=== PATIENT | female | born 1975 | race Caucasian/White ===

== ENCOUNTER 2020-11-27 08:23 | Emergency (ER) | payer BC, SELFPAY ==
--- NOTE | 2020-11-27 09:09 | PC.NURSE ---
pt is in her car with a 5 day hx of chest pain. pt was informed immediatley that our provider is not here as yet and that we recommend that she go directly to the ED
== END 2020-11-27 08:30 | disposition left against medical advice (07) ==
PROVIDERS: Emergency Provider Nurse Practitioner Family; PCP Family Medicine
DX: Z53.21 Procedure and treatment not carried out due to patient leaving prior to being seen by health care provider (principal)
CPT/HCPCS: 99199

== ENCOUNTER 2020-11-27 09:21 | Emergency (ER) | payer BC, SELFPAY ==
--- NOTE | ~2020-11-27 | XR_ITS ---
EXAMINATION: XR chest 2V DATE: 11/27/2020 10:13 INDICATION: Sharp left-sided chest pain TECHNIQUE: PA and lateral views of the chest were obtained. COMPARISON: None FINDINGS: The lungs are clear with no focal airspace opacities, pulmonary edema, pleural effusion or pneumothor ax. The cardiomediastinal silhouette is normal. Post cystectomy clips in the right upper quadrant. Mi ld lower thoracic levocurvature. IMPRESSION: 1. No acute cardiopulmonary disease. Reviewed, dictated and finalized at location A.
[2020-11-27 09:27] VITALS: BP 146/79; PULSE 70; RESP 16; TEMP 36.6; O2SAT 95
[2020-11-27 09:45] LABS: Basophils Absolute Auto 0.1 K/mm3 (0.0-0.1); Eosinophils Absolute Auto 0.3 K/mm3 (0-0.3); Eosinophils Percent Auto 4.5 % (0-4.4); Hematocrit 43.2 % (37.0-47.0); Hemoglobin 14.5 g/dL (12.0-15.0); Immature Granulocyte Absolute 0.01 K/mm3 (0.00-0.031); Immature Granulocyte Percent A 0.1 % (0-0.5); Lymphocytes Absolute Auto 2.29 K/mm3 (0.9-3.2); Lymphocytes Percent Auto 32.9 % (18.3-44.2); Mean Corpuscular HGB Conc 33.6 g/dl (32-36); Mean Corpuscular Hemoglobin 29.5 pg (26-34); Mean Platelet Volume 11.5 fl (7.4-10.4); Monocytes Absolute Auto 0.5 K/mm3 (0.1-0.6); Monocytes Percent Auto 6.8 % (2.6-8.5); Neutrophils Absolute Auto 3.8 K/mm3 (1.3-6.7); Neutrophils Percent Auto 54.7 % (45.5-73.1); Platelet Count Result 162 k/mm3 (150-375); Red Blood Count 4.91 M/mm3 (4.2-5.4); Red Cell Distribution Width 13.7 % (11.5-14.5)
[2020-11-27 09:54] LABS: Alanine Aminotransferase 16 U/L (4-35); Albumin Level 4.3 g/dL (3.5-5.1); Alkaline Phosphatase 70 U/L (38-126); Anion Gap 5 mmol/L (8-16); Aspartate Amino Transferase 19 U/L (14-36); Bilirubin,Total 0.3 mg/dL (0.2-1.3); Blood Urea Nitrogen 11 mg/dL (7-17); Calcium 9.1 mg/dL (8.4-10.2); Carbon Dioxide 26 mmol/L (22-30); Chloride 108 mmol/L (98-107); Estimated CRCL calculation 77 ml/min; Estimated Glomerular Filt Rate > 60; Glucose 101 mg/dL (65-105); Lipase 108 U/L (23-300); Potassium 3.7 mmol/L (3.4-5.0); Sodium 139 mmol/L (137-145)
[2020-11-27 10:04] LABS: Add Urine Microscopic? NO; Appearance Urine Clear (Clear); Bilirubin Urine Negative (Negative); Blood Urine Negative (Negative); Color Urine Straw (Yellow); Glucose Urine UA Negative (Negative); Ketones Urine Negative (Negative); Leukocyte Esterase Ur Negative LEU/UL (Negative); Nitrate Urine Negative (Negative); Protein Urine Negative (Negative); Specific Grav Ur 1.008 (1.001-1.035); Urobilinogen Urine Negative mg/dL (<2.0)
[2020-11-27] MEDS: KETOROLAC 30 MG/ML VIAL (*BKC) IV PUSH (10:09)
[2020-11-27 10:26] LABS: D Dimer 0.27 ug/mL (<0.48)
--- NOTE | 2020-11-27 11:30 | ED.GENADULT ---
HPI - General Adult General Chief complaint: Abdominal Pain Stated complaint: left upper abd/chest pain Time Seen by Provider: 11/27/20 09:32 History of Present Illness HPI narrative: Patient is a 45-year-old female who presents ER with left anterior chest wall pain inferior to the breast. Worse with movement and deep breath. No runny nose/sore throat/productive cough. No hemoptysis. No known trauma. No dyspnea or exertional dyspnea. Patient has no lower extremity swelling. No recent long distance travel or surgeries. No known cancer history. Patient does smoke. She is not on control. Patient was referred here from urgent care. No abdominal pain/nausea/vomiting/diarrhea. No urinary symptoms. Has tried [id number] pain medication without significant improvement. Related Data Home Medications Medication Instructions Recorded Confirmed No Home Medications 11/27/20 11/27/20 Allergies Allergy/AdvReac Type Severity Reaction Status Date / Time No Known Allergies Allergy Verified 11/27/20 09:30 Review of Systems Review of Systems: All systems reviewed & are unremarkable except as noted in HPI and below Constitutional: Constitutional: Denies chills, Denies fever(s) and Denies weakness ENT: Denies nasal congestion and Denies sore throat Cardiovascular: Cardiovascular: Reports chest pain, Denies rapid heart rate and Denies radiating jaw, neck or arm pain Respiratory: Respiratory: Denies chest congestion, Denies dyspnea and Denies wheezing Gastrointestinal: Gastrointestinal: Denies abdominal pain, Denies nausea and Denies vomiting Musculoskeletal: Musculoskeletal: Denies back pain and Denies muscle cramps Neurologic: Denies focal weakness, Denies numbness and Denies weakness PMFSH Past Medical History Medical History (Updated 11/27/20 @ 13:06 by Adolfo Car MD) Healthy female adult Surgical History Surgical History (Updated 11/27/20 @ 11:32 by Adolfo Car MD) History of cholecystectomy History of knee surgery History of tubal ligation Social History Social History (Updated 11/27/20 @ 11:32 by Adolfo Car MD) Tobacco type: cigarettes Exam Narrative: Exam Narrative: GENERAL: Well-appearing, well-nourished, and in no acute distress. HEAD: Normocephalic, atraumatic. ENT: Mucous membranes moist. CHEST: Clear to auscultation. No respiratory distress. Significant tenderness palpation to anterior chest wall inferior to the breast. HEART: Regular rate and rhythm. Normal peripheral pulses. ABDOMEN: Soft, nontender, nondistended. EXTREMITIES: Normal range of motion. No edema. SKIN: Warm, dry, no rash. NEURO: Alert and oriented x3. Course Course Emergency Course: Pain improving with Toradol. Informed results. Discharge home. Vital Signs Vital signs: Vital Signs Temperature 97.9 F 11/27/20 09:27 Pulse Rate 70 11/27/20 09:27 Respiratory Rate 16 11/27/20 09:27 Blood Pressure 146/79 H 11/27/20 09:27 Pulse Oximetry 95 11/27/20 09:27 Temperature 97.9 F 11/27/20 09:27 Pulse Rate 76 11/27/20 12:28 Respiratory Rate 20 11/27/20 12:28 Blood Pressure 132/78 11/27/20 12:28 Pulse Oximetry 99 11/27/20 12:28 Medical Decision Making Vital Signs Vital Signs: Vital Signs Temperature 97.9 F 11/27/20 09:27 Pulse Rate 70 11/27/20 09:27 Respiratory Rate 16 11/27/20 09:27 Blood Pressure 146/79 H 11/27/20 09:27 Pulse Oximetry 95 11/27/20 09:27 Temperature 97.9 F 11/27/20 09:27 Pulse Rate 76 11/27/20 12:28 Respiratory Rate 20 11/27/20 12:28 Blood Pressure 132/78 11/27/20 12:28 Pulse Oximetry 99 11/27/20 12:28 Lab Data Result diagrams: 11/27/20 09:34 11/27/20 09:34 Labs: Lab Results 11/27/20 11/27/20 11/27/20 Range/Units 09:34 09:34 09:34 WBC 7.0 (4.5-10.0) K/mm3 RBC 4.91 (4.2-5.4) M/mm3 Hgb 14.5 (12.0-15.0) g/dL Hct 43.2 (37.0-47.0) % M
[2020-11-27 12:28] VITALS: BP 132/78; PULSE 76; RESP 20; O2SAT 99
[2020-11-27 13:33] VITALS: BP 148/84; PULSE 76; RESP 20; O2SAT 99
== END 2020-11-27 13:36 | disposition home or self-care (01) ==
PROVIDERS: Emergency Provider Emergency Medicine
DX: R07.89 Other chest pain (principal); F17.210 Nicotine dependence, cigarettes, uncomplicated
CPT/HCPCS: 36415; 71046; 80053; 81003; 83690; 85025; 85380; 96374; 99284; J1885

== ENCOUNTER 2021-12-08 10:46 | Outpatient (CLI) | payer BC, SELFPAY ==
--- NOTE | ~2021-12-08 | US_ITS ---
EXAMINATION: US pelvic complete w TV EXAM DATE: 12/08/2021 11:24 INDICATION: R10.2 - Pelvic and perineal pain. TECHNIQUE: Pelvic transabdominal and transvaginal sonogram was performed. There are multiple graysca le and Doppler images available for interpretation. There is no prior study for comparison. FINDINGS: Uterus measures 7.0 x 4.0 x 3.3 cm, with scattered anechoic regions, consistent with nabot hian cysts in the cervix. Similar-appearing cystic region within the endometrium, could be loculated fluid pocket which is more fundal in position. No gestation sac or pole within this. There is a posterior myometrial fibroid. Right adnexa: The ovary is not identified. There is no adnexal mass. Left adnexa: The ovary measures 2.1 x 1.8 x 1.7 cm and is morphologically normal. Ovarian vascular fl ow confirmed. IMPRESSION: 1. Nabothian cyst. 2. Endometrial fluid pocket most likely small region of loculated endometrial fluid. Consider 6 week follow-up exam. 3. Small fibroid. 4. Unremarkable left ovary. Reviewed, dictated and finalized at location B.
== END 2021-12-08 10:47 | disposition home or self-care (01) ==
LOC: ANHIMG 10:50
PROVIDERS: Visit Provider Obstetrics & Gynecology
DX: R10.2 Pelvic and perineal pain (principal); N88.8 Other specified noninflammatory disorders of cervix uteri; D25.9 Leiomyoma of uterus, unspecified
CPT/HCPCS: 76830; 76856

== ENCOUNTER 2022-02-16 11:12 | Outpatient (CLI) | payer BC, SELFPAY | END 2022-02-16 11:13 | disposition home or self-care (01) | PROVIDERS: Visit Provider Obstetrics & Gynecology | DX: D25.9 Leiomyoma of uterus, unspecified (principal); Z01.818 Encounter for other preprocedural examination | CPT/HCPCS: 36415; 86850; 86900; 86901 ==

== ENCOUNTER 2022-02-20 01:12 | Day surgery (SDC) | payer BC, SELFPAY ==
[2022-02-13 09:32] VITALS: BMI 23.1
--- NOTE | 2022-02-13 09:44 | PC.NURSE ---
Report to the Outpatient Waiting Room, entrance under the green pavilion located off [facility], at time 6:00 on date 02/20/22. OR Time: 7:30. - You and your visitor will be asked a series of questions to screen for COVID 19 for your protection. - Only one visitor is allowed at this time. - The patient visitor is requested to leave or wait in car when not with patient. - A mask is required within the hospital. Patients may have clear liquids (water, carbonated beverages, clear teas, apple juice) until 3 hours prior to surgery (4:30) with a maximum of 20 ounces. - No food from midnight until time of surgery Take the following medications with a SIP of water the morning of surgery: NONE Medications to discontinue per physician: N/A Date to take last dose: N/A Please no make-up, nail faroese, hairspray, perfume, deodorant, or body powder the day of surgery. No jewelry (including any body piercings) or valuables the day of surgery, leave them at home. Please take a shower or bath the night before, or the morning of, surgery with an antibacterial soap. Wear comfortable, loose fitting clothing. - Jewelry must be removed prior to entering the operating room. Rings and piercings that are not removed may be cut off. - The hospital will not accept responsibility for valuables. - Please leave all valuables, including medications, at home the day of surgery. If you are going home after surgery, a licensed experienced truck driver must drive you home. - NO public transportation without another adult. - We recommend that an adult stay with you for 24 hours following discharge. - We also recommend that you do not drive, make important decision, drink alcoholic beverages, or take any drugs that were not prescribed by your health care provider for at least 24 hours after your discharge time. Follow any additional instructions given to you from your surgeon. If you or anyone in your household have experienced Covid symptoms in the past week, please notify your surgeon or the nurse liaison at the phone number below for possible testing. Telephone instructions given to PT - PORTILLO MAO and asked if any additional questions and then verbalized understanding. Patient advised to call surgeon office or pre surgery nurse liaison [phone] if any additional questions.
[2022-02-20] VITALS (12 sets, daily range): BP systolic 114–155; BP diastolic 61–91; PULSE 50–72; RESP 11–18; TEMP 35.9–36.9; O2SAT 95–100
[2022-02-20] MEDS: ACETAMINOPHEN 500 MG TABLET 1000 MG PO (06:44)
[2022-02-20] MEDS: KETOROLAC 15 MG/ML VIAL (*BKC) IV PUSH (06:44)
[2022-02-20] MEDS: LACTATED RINGERS 1,000 ML 30 ML IV CONT ×2 (06:44→09:00)
--- NOTE | 2022-02-20 07:04 | P.PNAN_ITS ---
Anes - Initial Pre Proc Eval Procedure: Operation Date: 02/20/22 07:30 Proposed Procedures p Robotic Assisted Laparoscopic Hysterectomy with Bilateral Salpingectomy, - Mary Fabian MD s Cystoscopy - Mary Fabian MD Date/Time: 02/20/22 07:04 Surgeon: Mary Fabian MD Pre Op Diagnosis: uterine fibroids Patient Data Age: 46 Gender: F Height: 1.63 m Weight: 60.3 kg Last Vital Signs Temp 36.2 C L 02/20/22 06:28 Pulse 72 02/20/22 06:28 Resp 18 02/20/22 06:28 BP 124/79 02/20/22 06:28 Pulse Ox 100 02/20/22 06:28 O2 Del Method Room Air 02/20/22 06:28 Allergies Allergy/AdvReac Type Severity Reaction Status Date / Time No Known Allergies Allergy Verified 02/20/22 06:26 Home Medications Medication Instructions Recorded Confirmed Type No Home Medications 11/27/20 02/20/22 History Patient hx anesthesia problems: none Family hx anesthesia problems: none Results Review: All pre-operative results and documents have been reviewed as part of the pre- operative evaluation. [facility] Past Medical History Medical History (Updated 02/20/22 @ 07:05 by Jaison Kramer MD) Healthy female adult Leiomyoma Surgical History Surgical History History of breast biopsy 08/22/2021- BILATERAL BX DONE XS 3 - BENGINS FINDINGS PER PT History of cholecystectomy History of knee surgery History of tubal ligation Family History Family History Other Acute myocardial infarction Heart disease Social History Social History Smoking packs per day: 0.5 Smoking cigarettes per day: 10.0 Years smoked: 15 Smoking pack-years: 7.50 Smoking status: Current every day smoker Tobacco type: cigarettes Alcohol intake: current Alcohol use details: 6/MONTH Substance use: never Substance use type: does not use Living arrangements: with family 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[employer] Gender identity (if verbalized by the patient): Female Sexual Orientation (if Verbalized by the Patient): Straight or Heterosexual Spiritual care concerns: No Anes - Eval Final PreProcedure Day of Procedure 02/20/22 07:04 Patient weight: normal Heart: regular rate and rhythm Lungs: clear to auscultation and normal air movement Airway: Mallampati scale class II Neurological: alert and oriented Last oral intake: >/= 8 hours ASA classification: II Emergent: no Anesthetic plan: proceed Anesthesia type and monitoring: general ETT Results Review: All pre-operative results and documents have been reviewed as part of the pre- operative evaluation. Informed Consent: The patient's anesthetic plan and its attendant risks and benefits were discussed with the patient/family/POA. Questions were solicited and answers provided to the satisfaction of the patient/family/POA.
--- NOTE | 2022-02-20 07:10 | PM.IMHP ---
H&P: HPI History of Present Illness Date/Time: 02/20/22 07:00 Chief Complaint: scheduled surgery Narrative: Anahi is a 46yo P2010, who presents for scheduled surgery. She has a h/o BTL and endometrial ablation; does not have cycles. She has been having sharp pelvic pains the last couple months; US and CT scan are normal except for endometrial cysts (hematometria/post ablative syndrome). She reports intercourse is now painful. She is tired of the pain; using a heating pad and ibuprofen constantly. She desires to proceed with hysterectomy. No bleeding, discharge, bowel/bladder issues. Normal pap smear 12/2021. Review of Systems Review of Systems: All systems reviewed & are unremarkable except as noted in HPI and below (HPI) [facility] Past Medical History Medical History (Updated 02/20/22 @ 07:05 by Jaison Kramer MD) Healthy female adult Leiomyoma Surgical History Surgical History History of breast biopsy 08/22/2021- BILATERAL BX DONE XS 3 - BENGINS FINDINGS PER PT History of cholecystectomy History of knee surgery History of tubal ligation Family History Family History Other Acute myocardial infarction Heart disease Social History Social History Smoking packs per day: 0.5 Smoking cigarettes per day: 10.0 Years smoked: 15 Smoking pack-years: 7.50 Smoking status: Current every day smoker Tobacco type: cigarettes Alcohol intake: current Alcohol use details: 6/MONTH Substance use: never Substance use type: does not use Living arrangements: with family 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[employer] Gender identity (if verbalized by the patient): Female Sexual Orientation (if Verbalized by the Patient): Straight or Heterosexual Spiritual care concerns: No Meds Home Medications and Allergies Home Medications Medication Instructions Recorded Confirmed Type No Home Medications 11/27/20 02/20/22 History Allergies Allergy/AdvReac Type Severity Reaction Status Date / Time No Known Allergies Allergy Verified 02/20/22 06:26 Exam Const: General: cooperative, healthy appearing, comfortable and no acute distress Resp: Effort & Inspection: normal respiratory effort Cardio: Rate: regular rate GI: Inspection: normal to inspection and non-distended GI Palp: Yes Soft to palpation Skin: General skin exam: normal color Neuro: General: patient oriented x3 Extrem: General: normal to inspection Psych: Appearance: grossly normal Affect: normal affect Attitude: cooperative Assessment and Plan Assessment and plan (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
--- NOTE | 2022-02-20 07:10 | WPDHPUPDATE1 ---
History and Physical Update Update Date/Time: 02/20/22 07:10 History and Physical has been reviewed, including an updated exam of the patient. There are NO changes in the patient's condition. Risks, benefits, and alternatives have been discussed and questions answered. Patient agrees to proceed with procedure.
[2022-02-20] MEDS: ceFAZolin 2 GM/D5W 50 ML 2 GM/50 ML BAG IVPB (07:24)
[2022-02-20] MEDS: LIDO 1%/EPINEPHRINE/PF 1:200,000 30 ML VIAL INFILTRATE (08:48)
--- NOTE | 2022-02-20 08:58 | W.PM.PROC2 ---
Procedure Note - Detailed Date of Procedure 02/20/22 Pre-op Diagnosis Post endometrial ablation syndrome Endometrial cyst Post-op Diagnosis Same Procedure Performed Robotic assisted total laparoscopic hysterectomy with bilateral salpingectomy and cystoscopy Surgeon Mary Fabian MD Anesthesia General Findings Normal uterus; endometrium with scar tissue from prior ablation, hard to enter cavity. Normal ovaries. Bilateral fallopian tubes with prior history of tubal ligation. Normal bladder w/o defect and bilateral ureteral efflux noted. Good hemostasis at end of case. Description of Procedure Anahi was taken to the operating room where she was placed under general anesthesia without issues. She received 2 g Ancef.? She was then prepped and draped in the usual sterile fashion? in the dorsal lithotomy position with her legs in low [place] stirrups and her arms tucked at her side.? A time-out was performed.? My attention was turned down below where a epperson catheter was placed. A bivalve speculum was placed within the vagina. The cervix was easily identified and the anterior lip of the cervix was grasped with single-tooth tenaculum.? The uterus was then sounded to 8cm.? The cervix was serially dilated to allow for the VALE uterine manipulator; which was placed w/o issue (6cm tip with 2.5cm cervical ring).? My gloves were changed and attention was then turned to the abdomen. A supraumbilical incision was made, and a 5 mm trocar was placed under direct visualization.? Once intra-abdominal placement was confirmed, the abdomen was insufflated with carbon dioxide gas.? An abdominal survey was performed and the above findings were noted.? Two additional ports were placed on the patients right side with an additional port on the left side under direct visualization without issues.The robot was then docked. The instruments were placed intra-abdominally under direct visualization.? I then un-scrubbed and went to the robotic console. I then started my hysterectomy on the right side. The ureter was easily identified transperitoneally and well out of the surgical field. The fallopian tube was elevated and the mesosalpinx was coagulated and transected.? The round ligament was clamped, coagulated, and transected. The uterine ovarian artery was then serially clamped, coagulated, and transected with good hemostasis. The broad ligament was then dissected anteriorly and posteriorly skeletonizing the uterine artery.? The bladder flap was then developed on the right side and carried around the left, anteriorly.? The uterine artery was then serially clamped and coagulated.? Once the vessel was adequately coagulated, it was then transected with good hemostasis. The same procedure was then performed on the left side without complications. ? The uterus was noted to be devascularized.? The bladder flap was verified out of the surgical field and the colpotomy was started anteriorly and continued in a clockwise fashion until the uterus was released.? The uterus was removed from the abdomen via the vagina without complications.? The vaginal cuff had small bleeders that were made hemostatic without complications.? The vaginal cuff was then reapproximated using a 0 V lock suture. The pelvis was then irrigated and suctioned free of all clots and debris.? Good hemostasis was noted.? All instruments were removed from the abdomen and the robot was undocked.? I then scrubbed back in and verified that the cuff was intact without any defects.? The Epperson catheter was then removed.? The cystoscope was placed within the urethra/ bladder, which filled without difficulty.? Bilateral ureteral efflux was noted.? The bladder was examined and no defects or abnormalities were visualized.? The bladder was drained.? The cystoscope was removed and the epperson catheter was replaced under aseptic techique..? The 4 laparoscopic incisions were reapproximated using 4-0 Monocryl and covered with Dermabond.? The laparoscopic incisions
[2022-02-20] MEDS: fentaNYL CITRATE INJ (*CRX) 100 MCG/2 ML VIAL 25 MCG IV PUSH ×3 (09:23→09:41)
--- NOTE | 2022-02-20 10:35 | ADMGEN ---
1017-This patient, Anahi Whittaker, was admitted to OB 2nd Floor Room 289-00. Patient/family oriented to hospital policies and general routines including ID bracelet, bed and alarms, visiting hours, pain management, procedures, bathroom and other care routines, personal items, smoking policy, room service/diet, and visiting hours. Information on how to activate the Rapid Response Team has been discussed. Patient/Family are encouraged to report perceived risks to care and to ask questions if they do not understand what they are told or what they should do.
[2022-02-20] MEDS: KETOROLAC 30 MG/ML VIAL (*BKC) IV PUSH ×2 (11:08→16:53)
[2022-02-20] MEDS: LACTATED RINGERS 1,000 ML 125 ML IV CONT (11:09)
[2022-02-20] MEDS: DOCUSATE SODIUM 100 MG CAPSULE PO (16:54)
[2022-02-20] MEDS: IBUPROFEN 600 MG TABLET PO (22:40)
[2022-02-21 03:30] VITALS: BP 116/69; PULSE 64; RESP 18; TEMP 36.9; O2SAT 98
[2022-02-21] MEDS: IBUPROFEN 600 MG TABLET PO (04:53)
[2022-02-21 05:00] LABS: Basophils Absolute Auto 0.1 K/mm3 (0.0-0.1); Basophils Percent Auto 0.5 % (0.2-1.2); Eosinophils Absolute Auto 0.1 K/mm3 (0-0.3); Eosinophils Percent Auto 0.7 % (0-4.4); Immature Granulocyte Absolute 0.03 K/mm3 (0.00-0.031); Immature Granulocyte Percent A 0.3 % (0-0.5); Immature Platelet Fraction Pct 15.6 % (0.9-11.2); Lymphocytes Absolute Auto 2.15 K/mm3 (0.9-3.2); Lymphocytes Percent Auto 18.5 % (18.3-44.2); Mean Corpuscular HGB Conc 33.3 g/dl (32-36); Mean Corpuscular Hemoglobin 29.5 pg (26-34); Mean Corpuscular Volume 88.5 fl (80-100); Mean Platelet Volume 12.7 fl (7.4-10.4); Monocytes Absolute Auto 0.8 K/mm3 (0.1-0.6); Monocytes Percent Auto 6.6 % (2.6-8.5); Neutrophils Absolute Auto 8.5 K/mm3 (1.3-6.7); Neutrophils Percent Auto 73.4 % (45.5-73.1); Platelet Count Result 133 k/mm3 (150-375); Red Blood Count 4.07 M/mm3 (4.2-5.4); Red Cell Distribution Width 13.9 % (11.5-14.5); White Blood Count 11.6 K/mm3 (4.5-10.0)
[2022-02-21 05:12] LABS: Anion Gap 8 mmol/L (8-16); Blood Urea Nitrogen 10 mg/dL (7-17); Calcium 8.7 mg/dL (8.4-10.2); Carbon Dioxide 23 mmol/L (22-30); Chloride 105 mmol/L (98-107); Estimated CRCL calculation 76 ml/min; Estimated Glomerular Filt Rate > 60; Glucose 118 mg/dL (65-110); Potassium 3.3 mmol/L (3.4-5.0); Sodium 136 mmol/L (137-145)
--- NOTE | 2022-02-21 07:06 | PM.GYNPNOP ---
EQUINE MANAGER - A/P Assessment and plan (1) S/P laparoscopic hysterectomy: Code(s): Z90.710 - Acquired absence of both cervix and uterus Status: Acute Postoperative Procedures: Procedures Operation Date: 02/20/22 07:30 Actual Procedure Side Surgeon p Robotic Assisted Laparoscopic Hysterectomy with Bilateral Salpingectomy, Bilateral Mary Fabian MD s Cystoscopy Not Applicable Mary Fabian MD Postoperative day: 1 Postoperative status: doing well Postoperative plan: routine post-op care and discharge Time Spent With Patient Time: Total time spent is greater than 50% in coordination of care (as documented) at patient's floor/unit and/or counseling patient: Time with patient: less than 15 minutes EQUINE MANAGER- PN:Subj Post-Op Subjective Date/time seen: 02/21/22 07:06 Interval history: POD #1 Anahi reports doing well. Her pain is controlled. She has tolerated diet. She has voided. She has ambulated w/o symptoms of anemia. She has passed gas. She is ready to go home today. Review of Systems Constitutional: Constitutional: Denies chills, Denies fever(s) and Denies headache(s) ENT: Denies dizziness and Denies headache(s) Cardiovascular: Cardiovascular: Denies chest pain, Denies palpitations and Denies dyspnea Respiratory: Respiratory: Denies cough and Denies dyspnea Gastrointestinal: Gastrointestinal: Denies nausea and Denies vomiting Genitourinary: Genitourinary: Denies abnormal vaginal bleeding Comments: normal bleeding Neurologic: Denies dizziness and Denies headache(s) Endocrine: Endocrine: Denies palpitations Exam Const: General: cooperative, comfortable and no acute distress Orientation/consciousness: patient oriented x3 Resp: Effort & Inspection: normal respiratory effort Auscultation: clear to auscultation bilaterally Cardio: Rate: regular rate GI: Inspection: non-distended and incision (4 lap incisions covered w/ dermabond) GI Palp: Yes abdominal tenderness (appropriate) and Yes Soft to palpation Auscultation: normal bowel sounds : Other: no bleeding on pad Skin: General skin exam: normal color Neuro: General: patient oriented x3 Extrem: General: normal to inspection Psych: Appearance: grossly normal Affect: normal affect Attitude: cooperative EQUINE MANAGER - PN: Obj Data Vital Signs Vital Signs: Vital Signs - 24 hr 02/20/22 09:00 02/20/22 09:16 02/20/22 09:30 Temperature 96.9 F L 96.7 F L 97 F L Pulse Rate 66 57 L 51 L Respiratory Rate 12 12 12 Blood Pressure 133/79 139/91 H 155/86 H Pulse Oximetry 100 100 98 Oxygen Delivery Simple Face Mask Simple Face Mask Room Air Oxygen Flow Rate 10 10 02/20/22 09:45 02/20/22 10:00 02/20/22 10:35 Temperature 97 F L 97 F L Pulse Rate 54 L 60 59 L Respiratory Rate 11 L 11 L 16 Blood Pressure 153/84 H 144/85 H Pulse Oximetry 95 97 97 Oxygen Delivery Room Air Room Air Room Air Oxygen Flow Rate 02/20/22 10:20 02/20/22 12:23 02/20/22 14:36 Temperature 97.1 F L 97.8 F Pulse Rate 59 L 55 L 55 L Respiratory Rate 16 18 18 Blood Pressure 114/73 127/80 Pulse Oximetry 96 100 100 Oxygen Delivery Room Air Oxygen Flow Rate 02/20/22 18:35 02/20/22 22:42 02/21/22 03:30 Temperature 98.2 F 98.5 F 98.5 F Pulse Rate 52 L 50 L 64 Respiratory Rate 18 18 18 Blood Pressure 117/79 136/61 116/69 Pulse Oximetry 98 98 98 Oxygen Delivery Oxygen Flow Rate Intake/Output Intake/Output: Intake & Output 02/18/22 02/19/22 02/20/22 02/21/22 23:59 23:59 23:59 23:59 Intake Total 2955 Output Total 880 Balance 2075 Meds/Results Medications: Active Medications Generic Name Dose Route Start Last Admin Trade Name Antonina PRN Reason Stop Dose Admin Acetaminophen 1,000 mg 02/20/22 13:00 Acetaminophen 500 Mg Tablet PO Q6H CATALINA Docusate Sodium 100 mg 02/20/22 10:09 02/20/22 16:54 Docusate Sodium 100 Mg Capsule PO 100 mg BID CATALINA Administration Lactated Ringer's 1,000 mls @ 125 m
[2022-02-21 08:00] VITALS: BP 124/84; PULSE 57; RESP 18; TEMP 36.9; O2SAT 99
--- NOTE | 2022-02-21 08:56 | WPDANESPN ---
Anes - Prog Note Post-Op Date/Time: 02/21/22 08:56 Cardiovascular status: normal Respiratory status: normal Airway patency: baseline Mental status: baseline Post-Op hydration status: normal Vital Signs: Last Vital Signs Temp 36.9 C 02/21/22 03:30 Pulse 64 02/21/22 03:30 Resp 18 02/21/22 03:30 BP 116/69 02/21/22 03:30 Pulse Ox 98 02/21/22 03:30 O2 Del Method Room Air 02/20/22 14:36 O2 Flow Rate 10 02/20/22 09:16 Pain Score (VAS): 3 I/O: Intake & Output 02/20/22 02/21/22 02/21/22 23:59 07:59 15:59 Output Total 250 Balance -250 Laboratory Tests 02/21/22 03:37 02/21/22 03:37 02/21/22 02/21/22 03:37 03:37 WBC 11.6 H RBC 4.07 L Hgb 12.0 Hct 36.0 L MCV 88.5 MCH 29.5 MCHC 33.3 RDW 13.9 Plt Count 133 L MPV 12.7 H Immature Gran % (Auto) 0.3 Neut % (Auto) 73.4 H Lymph % (Auto) 18.5 [place] % (Auto) 6.6 Eos % (Auto) 0.7 Baso % (Auto) 0.5 Lymph # (Auto) 2.15 [place] # (Auto) 0.8 H Eos # (Auto) 0.1 Baso # (Auto) 0.1 Abs Immat Gran (auto) 0.03 Absolute Neuts (auto) 8.5 H Absolute Nucleated RBC 0.0 Nucleated RBC % 0.0 % Immature Plt Fraction 15.6 H Sodium 136 L Potassium 3.3 L Chloride 105 Carbon Dioxide 23 Anion Gap 8 BUN 10 Creatinine 0.70 Estim Creat Clear Calc 76 Estimated GFR > 60 Glucose 118 H Calcium 8.7 Post-procedural complaints: none Patient Feedback: Patient satisfied with anesthetic care.
== END 2022-02-21 08:53 | disposition home or self-care (01) ==
LOC: ANHSURGERY 06:11 → ANHOB2 10:11
PROVIDERS: Visit Provider Obstetrics & Gynecology
PROC: (CPT 58571; principal; 2022-02-20 07:30)
PROC: 0TJB8ZZ Inspection of Bladder, Via Natural or Artificial Opening Endoscopic (ICD-10-PCS; CPT 52000; 2022-02-20 07:30)
DX: N99.85 Post endometrial ablation syndrome (principal); N80.0 Endometriosis of uterus; F17.210 Nicotine dependence, cigarettes, uncomplicated
CPT/HCPCS: 58571; S2900; 36415; 80048; 85025; 85055; 86850; 86900; 86901; 88307; 99199; A9270; J0690; J1100; J1170; J1885; J2250; J2405; J2704; J3010; J7030; J7120

== ENCOUNTER 2022-02-28 15:34 | Outpatient (CLI) | payer BC, SELFPAY | END 2022-02-28 15:35 | disposition home or self-care (01) | LOC: ANHLAB 15:36 | PROVIDERS: Visit Provider Obstetrics & Gynecology | DX: R30.0 Dysuria (principal) | CPT/HCPCS: 87086; 87088 ==

== ENCOUNTER 2022-03-06 14:11 | Outpatient (CLI) | payer BC, SELFPAY | END 2022-03-06 14:12 | disposition home or self-care (01) | LOC: ANHLAB 14:13 | PROVIDERS: Visit Provider Obstetrics & Gynecology | DX: R30.0 Dysuria (principal) | CPT/HCPCS: 87086 ==

== ENCOUNTER 2023-01-03 15:18 | Outpatient (CLI) | payer BC, SELFPAY ==
[2023-01-03 16:18] LABS: Appearance Urine Clear (Clear); Bilirubin Urine Negative (Negative); Blood Urine Negative (Negative); Color Urine Yellow (Yellow); Glucose Urine UA Negative (Negative); Ketones Urine Negative (Negative); Leukocyte Esterase Ur Negative LEU/UL (NEGATIVE); Nitrate Urine Negative (Negative); Protein Urine Negative (Negative); Specific Grav Ur 1.005 (1.001-1.035); Urobilinogen Urine 0.2 mg/dL (<2.0); pH Urine 6.5 (5.0-9.0)
[2023-01-03 16:21] LABS: Add Urine Microscopic? NO
== END 2023-01-03 15:19 | disposition home or self-care (01) ==
LOC: ANHLAB 15:20
PROVIDERS: Visit Provider Obstetrics & Gynecology
DX: R30.0 Dysuria (principal)
CPT/HCPCS: 81003; 87086

== ENCOUNTER 2023-03-05 11:59 | Outpatient (CLI) | payer BC, SELFPAY ==
--- NOTE | ~2023-03-05 | MMUS_ITS ---
EXAMINATION: MM diagnostic linus BI w laura, US breast LT limited HISTORY: Lateral left breast lump TECHNIQUE: ML, MLO and CC full field and spot 3-D tomosynthesis images of both breasts were performed and synthetic 2-D images were generated. CAD analysis was submitted and interpreted. High resolution upper outer quadrant and subareolar left breast ultrasound was performed. COMPARISON: 05/09/2021 bilateral diagnostic mammogram 04/26/2021 bilateral screening mammogram BREAST PARENCHYMAL COMPOSITION: The breasts are heterogeneously dense, which may obscure small masses . FINDINGS: MAMMOGRAPHIC FINDINGS: There are 3 biopsy markers in each breast; history of 3 benign needle biopsies of each breast. There is interval enlargement of a mass in the posterior upper outer left breast. There is a biopsy m arker centrally within this mass. The margins are circumscribed and measures up to approximately 16 x 20 mm. There is halo sign. The circumscribed margins and halo sign suggest benign process. There is reportedly a prior benign biopsy of this lesion. However, considering the increased in size since 04/10 at which time it measured approximately 7 x 11 mm, ultrasound examination was performed. Otherwise no suspicious new mass or architectural distortion, malignant calcification, skin thickenin g or retraction is noted. ULTRASOUND: 12:00 2 cm from nipple: Circumscribed 3.7 x 2.7 x 4.8 mm lesion without internal vascularity or poste rior shadowing, likely benign 12:00 3 cm from nipple: Similar 3.6 x 2.8 x 3.9 mm circumscribed hypoechoic lesion without internal v ascularity or posterior shadowing 2:00 7 cm from nipple: Circumscribed hypoechoic 7 x 5 x 4 mm lesion without internal vascularity or p osterior shadowing, probable biopsy marker 3:00 8 cm from nipple: Parallel circumscribed heterogeneous mixed solid and fatty lesion, measuring 1 1 x 20 x 22 mm, with evidence of a biopsy marker. There is through transmission and posterior enhance ment and no abnormal internal vascularity. The mammographic halo sign, mammographic circumscribed mar gins and Presence of fat within the lesion suggests benign process, possibly hamartoma (fibroadenolipoma); dif ferential diagnosis includes lipoma, less likely fibroadenoma. Correlation with surgical biopsy is re commended. IMPRESSION: 1. Probably benign lesion in posterior upper outer left breast at 3:00 8 cm from nipple 2. Consider 6 month diagnostic mammogram and ultrasound follow-up considering the increased size sinc e 04/26/2021 BI-RADS category 3, probably benign findings. Reviewed, dictated and finalized at location A. IMPRESSION: 1. Probably benign lesion in posterior upper outer left breast at 3:00 8 cm fro m nipple 2. Consider 6 month diagnostic mammogram and ultrasound follow-up considering t he increased size since 04/26/2021 BI-RADS category 3, probably benign findings.
== END 2023-03-05 12:00 | disposition home or self-care (01) ==
LOC: ANHIMG 12:01
PROVIDERS: Visit Provider Obstetrics & Gynecology
DX: N63.21 Unspecified lump in the left breast, upper outer quadrant (principal); R92.8 Other abnormal and inconclusive findings on diagnostic imaging of breast
CPT/HCPCS: 76642; 77062; 77066; G0279

== ENCOUNTER 2023-08-15 10:37 | Outpatient (CLI) | payer BC, SELFPAY ==
--- NOTE | ~2023-08-15 | MMUS_ITS ---
EXAMINATION: MM diagnostic linus LT w laura, US breast LT limited HISTORY: Left breast mass TECHNIQUE: Additional 3-D tomosynthesis images of the left breast were performed and synthetic 2-D im ages were generated. CAD analysis was submitted and interpreted. High resolution limited left breast ultrasound was performed. COMPARISON: 03/05/2023, 05/09/2021, 04/26/2021 FINDINGS: MAMMOGRAPHIC FINDINGS: There are three stable left breast masses with biopsy change. There is also a stable asymmetry in the anterior third of the breast on the craniocaudal view in line with the nipple axis. ULTRASOUND: There is a stable 2.6 x 1.7 cm oval, circumscribed, parallel, hypoechoic mass with posterior acoustic enhancement and internal vascularity at the 3:00 location, 8 cm from the nipple with associated biop sy change. There is a 4 mm cyst at the 12:00 location, 2 cm from the nipple. IMPRESSION: 1. Stable left breast masses and left breast asymmetry without mammographic or sonographic evidence o f malignancy. 2. Recommend routine screening mammography in one year. BI-RADS Category 2: Benign finding(s). Reviewed, dictated and finalized at location A. ING ANALYST IMPRESSION: 1. Stable left breast masses and left breast asymmetry without mammographic or sonographic evidence of malignancy. 2. Recommend routine screening mammography in one year. BI-RADS Category 2: Benign finding(s).
== END 2023-08-15 10:38 | disposition home or self-care (01) ==
LOC: ANHIMG 10:42
PROVIDERS: Visit Provider Obstetrics & Gynecology
DX: N63.25 Unspecified lump in the left breast, overlapping quadrants (principal)
CPT/HCPCS: 76642; 77061; 77065; G0279

== ENCOUNTER 2025-01-13 12:48 | Outpatient (CLI) | payer BC, SELFPAY ==
[2025-01-13 13:28] LABS: Add Urine Microscopic? NO; Appearance Urine Clear (Clear); Bilirubin Urine Negative (Negative); Blood Urine Negative (Negative); Color Urine Yellow (Yellow); Glucose Urine UA Negative (Negative); Ketones Urine Negative (Negative); Leukocyte Esterase Ur Negative LEU/UL (Negative); Nitrate Urine Negative (Negative); Protein Urine Negative (Negative); Urobilinogen Urine 0.2 mg/dL (<2.0)
== END 2025-01-13 12:49 | disposition home or self-care (01) ==
LOC: ANHLAB 12:49
PROVIDERS: PCP Family Medicine; Visit Provider Obstetrics & Gynecology
DX: N39.3 Stress incontinence (female) (male) (principal); R30.0 Dysuria
CPT/HCPCS: 81003

== ENCOUNTER 2025-08-03 00:44 | Day surgery (SDC) | payer BC, SELFPAY ==
[2025-07-21 11:27] VITALS: BMI 23.0
--- NOTE | 2025-07-21 11:49 | PC.NURSE ---
[facility] has started construction of its new state of the art ER which will open Spring 2026. With this, we anticipate parking may be a challenge for some our surgical patients and families. Parking spaces are limited but are available for all Surgical, obstetrics, and ER patients sharing this lot. If you arrive and find you are having a hard time finding a parking space, please note that we understand the challenges, please drive around the hospital and park near Hospital Entrance 1. When you enter this entrance, you can ask a volunteer to direct or take you back to the surgical waiting area to check in. We appreciate everyone?s understanding of these expected challenges while we build for your future. Report to the Outpatient Waiting Room, entrance under the green pavilion located off [address], at time _0900 on date _08/03/25 . Planned Procedure Time: __1100_.? Time changes happen often and if your time is changed the preop area will call you the afternoon before. - You and your visitor will be asked to self-screen and do not enter if you have any COVID symptoms. Please call surgeon if you need to reschedule. - A mask is optional within the hospital at this time. Patients may have clear liquids (water, carbonated beverages, clear teas, apple juice) until 3 hours prior to surgery with a maximum of 20 ounces. - No food from midnight until time of surgery and no smoking, or chewing tobacco (or any form of nicotine). No chewing gum, candy or mints. Take only the following medications with a SIP of water on the morning of surgery: __NONE *_DO NOT APPLY HRT PATCH TO ABDOMEN* DO NOT STOP ANY OF YOUR OTHER PRESCRIPTION MEDICATIONS PRIOR TO SURGERY EXCEPT THE FOLLOWING Hold all vitamins and supplements for 3 days per anesthesiologist. Medications to discontinue per physician N/A Date to take last dose__N/A Please no make-up, nail algerian, hairspray, perfume, deodorant, or body powder the day of surgery.? No jewelry (including any body piercings) or valuables the day of surgery, leave them at home.? Please take a shower or bath the night before, or the morning of, surgery with an antibacterial soap.? Wear comfortable, loose fitting clothing.? - Jewelry must be removed prior to entering the operating room.? Rings and piercings that are not removed may be cut off. - The hospital will not accept responsibility for valuables.? - Please leave all valuables, including medications, at home the day of surgery. If you are going home after surgery, a licensed driver license agent must drive you home.? - NO public transportation without another adult if you receive anesthesia. - We recommend that an adult stay with you for 24 hours following discharge. - We also recommend that you do not drive, make important decision, drink alcoholic beverages, or take any drugs that were not prescribed by your health care provider for at least 24 hours after your discharge time. Follow any additional instructions given to you from your surgeon. Telephone instructions given to __STACY and asked if any additional questions and then verbalized understanding. Patient advised to call surgeon office or pre surgery nurse liaison [phone] if any additional questions.
--- NOTE | 2025-07-27 08:23 | P.HP_ITS ---
H&P: HPI History of Present Illness Date/Time: 07/27/25 08:23 Chief Complaint: GEORGINA Narrative: Anahi Whittaker is a 49-year-old female who presents for follow-up of mixed urinary incontinence, including both stress and urge incontinence. She has a history of high-tone pelvic floor dysfunction and was previously prescribed oxybutynin and referred for pelvic floor physical therapy during her last visit. She did not a ttend physical therapy due to personal circumstances, including moving and work- related stress. She resides in [place] and requests a new referral for therapy. She reports continued symptoms of leakage when coughing and sneezing, which she describes as horrible. These symptoms significantly impact her daily activities, preventing her from running, jumping, or engaging in certain physical activities. She denies pelvic pain as a major concern. She has been taking oxybutynin but reports no improvement in urgency symptoms or leakage. She notes experiencing dry mouth as a side effect of the medication. The urgency symptoms, described as gotta go right now, are attributed to a spastic bladder, while the leakage during coughing and sneezing is explained as being caused by a weak sphincter muscle, likely related to childbirth. She expresses interest in addressing the leakage symptoms and is open to discussing procedural options, including a mid-urethral sling or transurethral bulking agents. She mentions that her sister underwent a similar procedure and found it beneficial. She only has pelvic pain now during intercourse She has not found oxybutynin to be effective Review of Systems Review of Systems: All systems reviewed & are unremarkable except as noted in HPI and below PMFSH Past Medical History Medical History Benign breast lumps Leiomyoma Healthy female adult Surgical History Surgical History H/O lumpectomy 03/2024 History of endometrial ablation S/P laparoscopic hysterectomy 02/21/22 History of breast biopsy 08/22/2021- BILATERAL BX DONE XS 3 - BENGINS FINDINGS PER PT History of knee surgery History of tubal ligation History of cholecystectomy Family History Family History Mother Cerebrovascular accident Other Acute myocardial infarction Heart disease Social History Social History (Updated 01/13/25 @ 11:09 by Gael Castellanos MA) Smoking packs per day: 0.5 Smoking cigarettes per day: 10.0 Years smoked: 20 Smoking pack-years: 10.00 Smoking status: Current every day smoker Tobacco type: cigarettes Alcohol intake: never Alcohol use details: rarely Substance use: never Substance use type: does not use Do You Feel Safe in your Home?: Yes Lack of Transportation: No Lack of Food: Never True Current Housing: I Have Housing Concerned About Future Housing: No Difficulty Paying Gas/Electric Bills: No Difficulty Paying for Meds: No Currently Unemployed: No Education: High School Diploma/GED Difficulty w/ Childcare or Family Care: No Living arrangements: with family Occupation/Education: occupation 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 Gender identity (if verbalized by the patient): Female Sexual Orientation (if Verbalized by the Patient): Straight or Heterosexual Spiritual care concerns: No Meds Home Medications and Allergies Home Medications ?Medication ?Instructions ?Recorded ?Confirmed ?Type fluoxetine 10 mg capsule (Prozac) 10 mg PO DAILY #90 c aps 07/28/24 07/21/25 Rx estradiol 0.05 mg/24 hr semiweekly 1 patch transdermal 2XW #8 ea 07/14/25 07/21/25 Rx transdermal patch (Gill) Allergies Allergy/AdvReac Type Severity Reaction Status Date / Time eggs AdvReac Intermediate Vomiting Uncoded 07/14/25 10:41 Exam Narrative: - General appearance: No acute distress. - Building nutrition: Well-developed, we ll-nourished. - Integumentary: Overall skin examinatio n reveals no significant rashes. - Head and Neck: Head Normocephalic atra umatic, Trachea Midline, Eye Extraocular movements intact, sclera normal, Neck Full range of motion. - Chest and Lung: Quiet and even respira tory effort without the use of accessory muscles of respiration, no cough or grunting. - Breast: Breast exam not indicated. - Cardiovascular: Lower extremity edema: trace, Lower extremity varicosities: absent. - Neurologic: Alert and oriented x3. - Musculoskeletal: Active movement of al l 4 extremities. - Lymphatic: No visible lymphadenopathy. + urethral mobility Assessment and Plan Assessment and plan (1) GEORGINA (stress urinary incontinence, female): Code(s): N39.3 - Stress incontinence (female) (male) Status: Acute Assessment and Plan: Note:?ASSESSMENT: - Mixed urinary incontinence, including stress and urge incontinence. - High-tone pelvic floor dysfunction. PLAN: - We discussed the treatment options for stress urinary incontinence, including pelvic floor muscle rehabilitation, transurethral bulking agents, and mid- urethral sling procedures. She is most interested in the latter. ? - We discussed the alternatives, benefits, and risks. We discussed specifically the risks of bleeding, infection, failure to correct incontinence, damage to the urinary tract, vaginal mesh extrusion, urinary tract mesh erosion, obstructive voiding requiring a secondary procedure, de mabrose or worsening irritative voiding symptoms, post-operative hip and leg pain, and the risk of anesthesia. We also discussed that treatment of stress incontinence is unlikely to improve overactive bladder symptoms if present. She was also counseled on post-operative activity restrictions. She wishes to proceed. ? - The patient presents with symptoms indicative of mixed urinary incontinence. The causes of both urge and stress incontinence were clarified to the patient. Urge incontinence results from an overactive bladder muscle, while stress incontinence stems from a weak urethral sphincter. ? - The patient is aware that these two forms of incontinence have distinct causes and require different treatment approaches. They recognize that addressing one type may not alleviate the other, and in some instances, a combination of therapies may be necessary
--- NOTE | 2025-08-02 20:47 | P.HP_ITS ---
H&P: HPI History of Present Illness Date/Time: 08/02/25 20:47 Chief Complaint: mixed incontinence Narrative: presents for surgical treatment for MARTÍNEZ Review of Systems Review of Systems: All systems reviewed & are unremarkable except as noted in HPI and below PMFSH Past Medical History Medical History (Updated 08/02/25 @ 20:49 by Rico Selby MD) GEORGINA (stress urinary incontinence, female) Benign breast lumps Leiomyoma Healthy female adult Surgical History Surgical History H/O lumpectomy 03/2024 History of endometrial ablation S/P laparoscopic hysterectomy 02/21/22 History of breast biopsy 08/22/2021- BILATERAL BX DONE XS 3 - BENGINS FINDINGS PER PT History of knee surgery History of tubal ligation History of cholecystectomy Family History Family History Mother Cerebrovascular accident Other Acute myocardial infarction Heart disease Social History Social History Smoking packs per day: 0.5 Smoking cigarettes per day: 10.0 Years smoked: 20 Smoking pack-years: 10.00 Smoking status: Current every day smoker Tobacco type: cigarettes Alcohol intake: never Alcohol use details: rarely Substance use: never Substance use type: does not use Do You Feel Safe in your Home?: Yes Lack of Transportation: No Lack of Food: Never True Current Housing: I Have Housing Concerned About Future Housing: No Difficulty Paying Gas/Electric Bills: No Difficulty Paying for Meds: No Currently Unemployed: No Education: High School Diploma/GED Difficulty w/ Childcare or Family Care: No Living arrangements: with family Occupation/Education: occupation 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 Gender identity (if verbalized by the patient): Female Sexual Orientation (if Verbalized by the Patient): Straight or Heterosexual Spiritual care concerns: No Meds Home Medications and Allergies Home Medications ?Medication ?Instructions ?Recorded ?Confirmed ?Type fluoxetine 10 mg capsule (Prozac) 10 mg PO DAILY #90 c aps 07/28/24 07/21/25 Rx estradiol 0.05 mg/24 hr semiweekly 1 patch transdermal 2XW #8 ea 07/14/25 07/21/25 Rx transdermal patch (Gill) Allergies Allergy/AdvReac Type Severity Reaction Status Date / Time eggs AdvReac Intermediate Vomiting Uncoded 07/14/25 10:41 Exam Narrative: + urethra; mobility Assessment and Plan Assessment and plan (1) GEORGINA (stress urinary incontinence, female): Code(s): N39.3 - Stress incontinence (female) (male) Status: Acute Assessment and Plan: urethral sling/cystoscopy
--- OUTSIDE RECORDS SUMMARY | 2025-08-03 00:47 | XMS_ITS | Encounter Summary ---
Author Organization [facility] Healthcare Address [address] [place] [address] Care Team Providers Care Vinyl Flooring Installer Name Role Phone Prerna Gonzales NP Unavailable [phone] Peewee Alarcon MD Primary Care Provider Sherrie Ellington MA Unavailable Mary Fabian MD Unavailable [phone] Dennise Lopez NP Primary Care Provider Reason for Visit * Reason Onset Date Comments Scheduling Appointments 04/25/2021 Confirmi mg mammogram appt- no answer Encounter Details Date Type Department Care Team (Late st Contact Info) Description 04/25/2021 Telephone [facility] [address] [place] [address] Meena Joshi RT Scheduling Appointments (Confirmimg mammogram appt- no answer ) Social History Tobacco Use Types Packs/Day Years Used Date Smoking Tobacco: Every Day Cigarettes 1 25.9 Started: 09/10/1999 Smokeless Tobacco: Never Alcohol Use Standard Drinks/Week Comments Yes 0 (1 standard drink = 0.6 oz pur e alcohol) socially PHQ-2 Answer Date Recorded PHQ-2 Total Score (If total score is 3 or more points, staff should administer the PHQ-9) 0 04/19/2021 Comments No Sex and Gender Information Value Date Recorded Sex Assigned at Not on file 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 Gender Identity Not on file Sexual Orientation Not on file documented as of this encounter Plan of Treatment Not on file documented as of this encounter Visit Diagnoses Not on filedocumented in this encounter Additional Health Concerns Infection Onset Date Last Indicated Resolved Time COVID: Suspected 11/27/2023 11/27/2023 11/27/2023 5:47 PM CDT 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.coli urine 03/03/24 03/03/2024 03/03/2024 documented as of this encounter Care Teams Vinyl Flooring Installer Relationship Specialty Start Date End Date Peewee Alarcon MD PCP - General Family Medicine 04/19/21 11/11/24 Dennise Lopez NP [address] [place] [address] [address] [place] [address] PCP - General Family Medicine 11/12/24 Prerna Gonzales NP Family Medicine 04/29/18 09/11/23 Sherrie Ellington MA [address] [place] [address] [address] [place] [address] 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
--- OUTSIDE RECORDS SUMMARY | 2025-08-03 00:47 | XMS_ITS | Clinical Summary ---
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 Name Role Phone Mary Fabian MD Unavailable [phone] Dennise Lopez NP Primary Care Provider Allergies No known active allergies Medications estradioL (VIVELLE-DOT) 0.0375 mg/[address] on the skin 5 Active FLUoxetine 10 mg tablet/capsule Take 1 tablet/capsule (10 mg total) by mouth 4 Active oxyBUTYnin XL (DITROPAN-XL) 10 mg 24 hr tablet Take 1 tablet (10 mg total) by mouth daily 5 Active valACYclovir (VALTREX) 1 gram tabletIndicatio ns:Cold sore TAKE 1 TABLET (1,000 MG TOTAL) BY MOUTH 2 (TWO) TIMES A DAY NEEDED ( NEEDED FOR SORE COLDS) 90 tablet 5 Active mirabegron ER (MYRBETRIQ) 25 mg tablet extended release 24 hr Take 1 tablet (25 mg total) by mouth daily Active albuterol HFA (PROVENTIL HFA,VENTOLIN HFA,PROAIR HFA) 90 mcg/actuation inhalerIndicati ons:Wheezing TAKE 2 PUFFS BY MOUTH EVERY 6 HOURS NEEDED FOR WHEEZE OR FOR SHORTNESS OF BREATH 6.7 each 1 5 Active Active Problems Problem Noted Date Diagnosed Date Cold sore 11/12/2024 Assessment & Plan (11/12/2024 9:59 AM BRIDGE WELDER): -Recurrent -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 which she previously took Valtrex as needed for -Patient reports experiencing multiple cold sores in the past couple of months -Valtrex 1 g prescribed for episodes of cold sores -Encouraged patient to reach out to office if not improved with medication -Continue current treatment plan Food intolerance 11/12/2024 Assessment & Plan (11/12/2024 10:01 AM BRIDGE WELDER): -New concern -Patient reports long history egg intolerance -She states she typically avoids anything with eggs in it because if she eats and she will experience projectile vomiting -Patient expressed interest in potential allergy testing related to eggs -Lab work ordered as part of evaluation -Continue current treatment plan Body mass index (BMI) of 23.0 to 23.9 in adult 0 09/22/2024 Assessment & Plan (05/04/2025 12:26 PM CDT): Wt Readings from Last 3 Encounters: 05/04/25 61.2 kg (135 lb) 04/02/25 59 kg (130 lb) 11/12/24 59.6 kg (131 lb 6.4 oz) Body mass index is 23.16 kg/m . -Stable, at goal of <30 bmi -Discussed recommendations for exercise at least 30 minutes moderate to vigorous exercise as tolerated most days of the week. (minimum 150 minutes weekly) -Discussed importance of well-balanced diet Assessment & Plan (11/12/2024 9:57 AM BRIDGE WELDER): Wt Readings from Last 3 Encounters: 11/12/24 59.6 kg (131 lb 6.4 oz) 09/23/24 59.9 kg (132 lb) 09/22/24 59.9 kg (132 lb) Body mass index is 22.55 kg/m . -Stable, at goal of <30 bmi -Discussed recommendations for exercise at least 30 minutes moderate to vigorous exercise as tolerated most days of the week. (minimum 150 minutes weekly) -Discussed importance of well-balanced diet Assessment & Plan (09/22/2024 1:05 PM BRIDGE WELDER): Wt Readings from Last 3 Encounters: 09/22/24 59.9 kg (132 lb) 09/18/24 59.9 kg (132 lb) 05/26/24 59.9 kg (132 lb 0.9 oz) Body mass index is 22.65 kg/m . -Stable, at goal of <30 bmi -Discussed recommendations for exercise at least 30 minutes moderate to vigorous exercise as tolerated most days of the week. (minimum 150 minutes weekly) -Discussed importance of well-balanced diet Mass of left breast 05/05/2024 Personal history of colonic polyps 11/07/2023 Overview (11/07/2023): Colonoscopy 10/14 Patient Profile: This is a 47 year old female. No family history of colon cancer. Noted recurrent episodes of bright red bleeding per rectum Procedure: Colonoscopy Indications: Screening for colorectal malignant neoplasm Referring MD: Peewee Alarcon M.D. Providers: Sarahy Wiseman M.D. Impression: - Two 5 to 8 mm polyps in the sigmoid colon, removed with a cold snare. Resected and retrieved. - One 10 mm polyp in the distal rectum, removed using injection-lift and a hot snare. Resected and retrieved. Clip (MR conditional) was placed. 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 - Internal hemorrhoids. Treated with thermal therapy. Recommendation: - Await pathology results. - Repeat colonoscopy in 3 years for surveillance. - If bleeding continued after 2 weeks of this treatment then banding of internal hemorrhoids can be planned as outpatient Encounter for screening colonoscopy 10/17/2023 Rectal bleeding 09/12/2023 Assessment & Plan (10/17/2023 7:26 PM BRIDGE WELDER): Has been noticing rectal bleeding for the past 1.5 years with every BM mix of bright red blood and clots either with wiping or in the toilet. no rectal or abdominal pain, no constipation, diarrhea, melena, or weight loss. Has been feeling more fatigued than usual. Hx of hysterectomy and gallbladder No known family history of colon cancer, liver disease, inflammatory bowel disease, or other GI pathologies Labs from 09/2023 showed normal CMP, elevated TSH with normal free T4, normal CBC, ESR, CRP CT A/P with contrast 12/2021 showed no acute GI findings, multiple hepatic cysts No prior endoscopies Plan Schedule colonoscopy to evaluate for hemorrhoids, colitis, colon cancer Assessment & Plan (09/12/2023 1:20 PM BRIDGE WELDER): - painless, bright red blood reported per rectum over the past year - getting worse - examination showed no olivia blood but was guaiac positive - suggestive of external hemorrhoid but unclear about anal fissure - obtain lab work including CBC and inflammatory markers - referral placed to GI for more extensive evaluation Left shoulder pain 12/19/2022 Closed dislocation of left acromioclavicular john nt 12/05/2022 Pelvic pain in female 12/15/2021 Overview (12/15/2021): S/p ultrasound pelvic complete with transvaginal done on 12/08/2021 ordered by OBGYN provider - Impression: nabothian cyst, endometrial fluid pocket most likely small region of loculated endometrial fluid. Consider 6 week follow-up exam. Small fibroid. Unremarkable left ovary. - Uterus measures 7 x 4 x 3.3 cm with scattered anechoic regions, consistent with nabothian cyst in the cervix. Similar appearing cystic region within the endometrium, could be loculated fluid pocket which is more fundal in position. No gestational sac pole within this. There is a posterior myometrial fibroid. - Right adnexa: The ovaries not identified. There is no adnexal mass. - Left adnexa: The ovary measures 2.1 x 1.8 x 1.7 cm as morphologically normal. Ovarian vascular flow confirmed CT Abd/pelv w contrast 12/09/2021 No evidence of inflammation or obstruction is identified in the small bowel and colon. No evidence of diverticular disease in the colon. Normal appendix. Indeterminate low-attenuation areas in the endometrial cavity, probably presenting pockets of fluid. This could be further characterized with pelvic sonogram if clinically warranted. Small fluid containing structures in the ovaries likely represent cysts, and there are no suspicious adnexal lesions. Unchanged multiple hepatic cysts. No suspicious liver masses. Other incidental findings as described above. Bilateral chronic knee pain 07/20/2021 Assessment & Plan (07/20/2021 8:49 AM BRIDGE WELDER): - has been told in past that she has OA in right knee, also has hx of ACL tear that was operated on in left knee - obtain XR of both knees Bilateral fibroadenomas of breasts 05/24/2021 Overview (05/16/2024): Pathology from Excision left breast mass 05/2024 Diagnosis: Breast, left, excision - Fibroadenoma with usual ductal hyperplasia - No evidence of atypia or malignancy Assessment & Plan (07/20/2021 11:24 AM BRIDGE WELDER): - recent diagnosis, stable - noted After abnormal breast cancer screening mammogram which led to a diagnostic mammogram and ultrasound with findings that were concerning enough for biopsy. - Diagnosis after successful ultrasound-guided biopsy of 3 masses in the right breast at 3 mass in the left breast with findings consistent with fibroadenoma on 5 as well as some fibrocystic changes on 1 mass on the left breast. Abnormal mammogram of both breasts 05/10/2021 Overview (05/10/2021): - had abnormal screening mammogram - had abnormal Diagnostic mammogram 04/30 - recommended to have biopsy US guided for masses in both breasts 1. The masses in the left breast at the 2 o'clock position, 4 cm and 5 cm from the nipple are suspicious for malignancy. Ultrasound-guided biopsy of each of these masses is recommended. 2. The masses in the right breast at the 9 o'clock and 12 o'clock positions are suspicious for malignancy. Ultrasound-guided biopsy of each of these masses is recommended. 3. The septated cyst at the 2 o'clock position in the left breast is probably benign. A 6 month follow-up diagnostic left mammogram and ultrasound is recommended to assess for stability. 4. No evidence of right or left axillary lymphadenopathy. - ordered US guided breast biopsy S/P laparoscopic cholecystectomy 04/19/2021 S/P tubal ligation 04/19/2021 Overview (04/19/2021): An an ablation for excessive bleeding Tobacco use disorder 04/19/2021 Assessment & Plan (11/12/2024 10:00 AM BRIDGE WELDER): Tobacco Use: High Risk (11/12/2024) Patient History Smoking Tobacco Use: Every Day Smokeless Tobacco Use: Never Passive Exposure: Current -stable, not at goal -patient reports they currently smokes 4-5 cigarettes or at most a half of a pack daily -patient reports they have been trying to cut back, but they are not ready to quit -patient educated on benefits of smoking cessation -encouraged patient to utilize resources such as [phone] -continue current treatment plan -total time spent on tobacco cessation education 3 minutes Assessment & Plan (09/12/2023 11:04 AM BRIDGE WELDER): Social History Tobacco Use Smoking Status Every Day Packs/day: 1.00 Years: 20.00 Additional pack years: 0.00 Total pack years: 20.00 Types: Cigarettes Start date: 09/10/1999 Passive exposure: Current Smokeless Tobacco Never - chronic, improved - currently smoking less than 1/2 a pack a day, which Is encouraging - discussed the importance of tobacco smoking cessation Assessment & Plan (07/20/2021 8:40 AM BRIDGE WELDER): Social History Tobacco Use Smoking Status Current Every Day Smoker Packs/day: 1.00 Years: 20.00 Pack years: 20.00 Types: Cigarettes Start date: 09/10/1999 Smokeless Tobacco Never Used - she has quit smoking before for 5-6 months via cold turkey - she is in contemplation zone for quitting - discussed the importance of tobacco smoking cessation Assessment & Plan (04/19/2021 8:43 AM CDT): Social History Tobacco Use Smoking Status Current Every Day Smoker Packs/day: 1.00 Years: 20.00 Pack years: 20.00 Types: Cigarettes Start date: 09/10/1999 Smokeless Tobacco Never Used - she has quit smoking before for 5-6 months via cold turkey - she is in contemplation zone for quitting GERD (gastroesophageal reflux disease) Assessment & Plan (11/12/2024 9:58 AM BRIDGE WELDER): -chronic, controlled -patient currently managed without medication -patient encouraged to continue avoiding trigger foods and remaining upright at least 30 minutes after eating or drinking -continue current treatment plan Assessment & Plan (09/12/2023 10:56 AM BRIDGE WELDER): - chronic, well controlled - currently on famotidine 20 mg BID PRN only - does not have ongoing heartburn with nausea and at times vomiting like she used to in remote past - contnue current management Patient was counseled to: - Avoid trigger foods (such as spicy foods, fried foods, onions, peppermints, chocolate, high acid foods and juices, caffeinated beverages, carbonated beverages, and tomato based products). - Avoid alcohol take. - Avoid routine use of NSAIDs. - Avoid lying down for 2-3 hours after eating. - Weight loss encouraged. - Eat smaller meals. - Avoid tobacco use. - Sleep on left side. - may sleep with bed propped. - Avoid wearing tight clothing that puts pressure on the stomach. Assessment & Plan (07/20/2021 8:40 AM BRIDGE WELDER): - chronic, better, not at goal - currently on famotidine 40 mg daily PRN only - has ongoing heartburn with nausea and at times vomiting - recommend taking Famotidine 40 mg nightly everyday for now Patient was counseled to: - Avoid trigger foods (such as spicy foods, fried foods, onions, peppermints, chocolate, high acid foods and juices, caffeinated beverages, carbonated beverages, and tomato based products). - Avoid alcohol take. - Avoid routine use of NSAIDs. - Avoid lying down for 2-3 hours after eating. - Weight loss encouraged. - Eat smaller meals. - Avoid tobacco use. - Sleep on left side. - may sleep with bed propped. - Avoid wearing tight clothing that puts pressure on the stomach. 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 Patient was counseled to: - Avoid trigger foods (such as spicy foods, fried foods, onions, peppermints, chocolate, high acid foods and juices, caffeinated beverages, carbonated beverages, and tomato based products). - Avoid alcohol take. - Avoid routine use of NSAIDs. - Avoid lying down for 2-3 hours after eating. - Weight loss encouraged. - Eat smaller meals. - Avoid tobacco use. - Sleep on left side. - may sleep with bed propped. - Avoid wearing tight clothing that puts pressure on the stomach. Preventative health care 04/19/2021 Assessment & Plan (11/12/2024 9:15 AM BRIDGE WELDER): - New or chronic worsening conditions: recent cold sores - Mental health: no significant psychiatric/mental health conditions affecting her day to day functioning - Dental health: Up to date with regular dental care and cleaning. Discussed importance of regular tooth brushing, flossing, and dental visits. - Nutrition: Stressed importance of moderation in sodium/caffeine intake, saturated fat and cholesterol, caloric balance, sufficient intake of fresh fruits, vegetables - Exercise: Stressed the importance of regular exercise - Immunizations: Age and sex appropriate immunizations reviewed and offered - Cervical Cancer screening: Up-to-date, follows with professor of business - Breast Cancer screening: Up-to-date - Colon cancer screening: Up-to-date - Lung cancer screening: Not indicated at this time - Bone desnity/osteoporosis screening: Not indicated at this time - control: Tubal ligation Assessment & Plan (09/12/2023 11:14 AM BRIDGE WELDER): - New or chronic worsening conditions: rectal bleeding - Mental health: no significant psychiatric/mental health conditions affecting her day to day functioning - Dental health: Up to date with regular dental care and cleaning. Discussed importance of regular tooth brushing, flossing, and dental visits. - Nutrition: Stressed importance of moderation in sodium/caffeine intake, saturated fat and cholesterol, caloric balance, sufficient intake of fresh fruits, vegetables - Exercise: Stressed the importance of regular exercise - Immunizations: Age and sex appropriate immunizations reviewed and offered - Cervical Cancer screening: n/a, s/p hysterectomy - Breast Cancer screening: up to date, requesting records from OBGYN office - Colon cancer screening: due, referral placed to GI - Lung cancer screening: n/a - Bone desnity/osteoporosis screening: - control: s/p tubal ligation, s/p hysterectomy Assessment & Plan (04/19/2021 9:02 AM CDT): - Acute concerns: no significant acute issues on this visit - Mental health: no significant psychiatric/mental health conditions affecting her day to day functioning - Dental health: Discussed importance of regular tooth brushing, flossing, and dental visits. - Nutrition: Stressed importance of moderation in sodium/caffeine intake, saturated fat and cholesterol, caloric balance, sufficient intake of fresh fruits, vegetables - Exercise: Stressed the importance of regular exercise, goal would be - discussed importance of tobacco smoking cessation Polyarthralgia 04/19/2021 Assessment & Plan (04/19/2021 9:08 AM CDT): - used meloxicam 7.5mg less than 1 times a week on occassions - refill provided, hx of fractures and ACl surgery which she still has pain/aches from time to time Non-seasonal allergic rhinitis due to pollen 06/2021 Assessment & Plan (04/19/2021 9:10 AM CDT): - has ear fullness, nasal congestion - has benefited with flonase nasal spray before - some TM fullness noted on physical examination - refill provided at this time History of recurrent UTIs 04/19/2021 Assessment & Plan (04/19/2021 1:21 PM CDT): - hx of frequent UTIs - used to be on Nitrofurantoin prophylactic therapy for about a year - has only had one UTI this year - discussed that we can monitor and treat her at this time and if it becomes too frequent we will consider prophylactic therapy if needed Left hand pain 11/04/2019 Resolved Problems Problem Noted Date Diagnosed Date Resolved Date Sprain of left acromioclavicular ligament 03/05/2023 09/12/2023 Tear of left rotator cuff 03/05/2023 Closed nondisplaced fracture of carpal bone of left wrist 11/04/2019 04/19/2021 Closed fracture of left distal radius 11/04/2019 04/19/2021 Acute cystitis with hematuria 02/19/2018 04/19/2021 Assessment & Plan (02/19/2018 4:36 PM CDT): Treat with cipro.. Increase fluids. F/u prn Urine dipstick shows positive for WBC's, positive for RBC's, positive for nitrates and positive for leukocytes. Micro exam: not done. Contact dermatitis 09/15/2014 Encounters Date Type Department Care Team Description 05/20/2025 Results Follow-Up [facility] Primary Care at [address] [phone] Lauren Nguyen NP XR Chest PA Lateral 2 Views 05/13/2025 10:12 AM CDT - 05/13/2025 11:59 PM CDT Hospital Encounter [facility] [address] [place] [address] Subacute cough Discharge Disposition: Discharge to home or self care 05/13/2025 9:30 AM CDT Office Visit [facility] Primary Care at [address] [phone] Lauren Nguyen NP Abrasion of right lower extremity, initial encounter (Primary Dx); Pain in right lower leg; Subacute cough; Wheezing 05/12/2025 Nurse Triage [facility] at [address] [phone] Dennise Lopez NP 05/04/2025 11:30 AM CDT Office Visit [facility] at [address] [phone] Dennise Lopez NP Acute non-recurrent sinusitis, unspecified location (Primary Dx); Acute cough; Body mass index (BMI) of 23.0 to 23.9 in adult 05/04/[address] [facility] Primary Care at [address] [phone] Dennise Lopez NP Acute cough 05/04/[address] [facility] Primary Care at [place] [address] [address] [place] [address] Dennise Lopez NP Medical Question/Miscellaneo us from Last 3 Months Immunizations Immunization Administration Dates Next Due Influenza, Unspecified 11/12/2024(Deferr ed: Patient Refused),09/22/2024(Deferred: Patient Refused),06/10/2021(Deferred: Patient Refused),06/10/2020(Deferred: Patient Refused),06/10/2020(Deferred: Patient Refused) Tdap 11/14/2010 Surgical History Surgery Date Site/Laterality Comments TUBAL LIGATION 09/10/1999 - 09/09/2000 Bilateral tubal ligation KNEE SURGERY 11/08/2014 - 12/08/2014 ACL CHOLECYSTECTOMY 11/08/2005 - 12/08/2005 BREAST BIOPSY 05/20/2021 Right BREAST BIOPSY 05/20/2021 Left HYSTERECTOMY 03/10/2022 - 04/09/2022 SHOULDER SURGERY 04/04/2023 Left COLONOSCOPY 11/07/2023 Medical History Medical History Date Comments Anemia Fibrocystic breast Family History Medical History Relation Name Comments No Known Problems Brother No Known Problems Daughter No Known Problems Father Breast cancer Maternal Grandmother Coronary artery disease Mother CABG at 48 and since then has had 3 stents placed Hyperlipidemia Mother Hypertension Mother No Known Problems Other No Known Problems Sister 1 No Known Problems Sister 2 No Known Problems Son 1 No Known Problems Son 2 Anesthesia problems Neg Hx Relation Name Status Comments Brother Daughter Father Alive Maternal Grandmother Mother Alive Other Sister 1 Alive Sister 2 Alive Son 1 Alive Son 2 Alive Social History Tobacco Use Types Packs/Day Years Used Date Smoking Tobacco: Every Day Cigarettes 0.7 25.9 Started: 09/10/1999 Passive Smoke Exposure: Current Smokeless Tobacco: Never Tobacco Cessation:Ready to Q uit: Not Asked; Counseling Given: Yes Alcohol Use Standard Drinks/Week Comments Not Currently 0 (1 standard drink = 0.6 oz pur e alcohol) socially PHQ-2 Answer Date Recorded PHQ-2 Total Score (If total score is 3 or more points, staff should administer the PHQ-9) 0 05/13/2025 AUDIT-C Answer Date Recorded Q1: How often do you have a drink containing alcohol? Never 05/04/2025 Q2: How many drinks containi ng alcohol do you have on a typical day when you are drinking? Patient does not drink Q3: How often do you have si x or more drinks on one occasion? Never 05/04/2025 Personal Safety Answer Date Recorded Have you ever been in or are you currently in a harmful physical or emotional relationship or is someone making you feel afraid or unsafe? Denies 05/13/2024 Comments No Sex and Gender Information Value Date Recorded Sex Assigned at Not on file Legal Sex Female 11:24 AM BRIDGE WELDER Gender Identity Not on file Sexual Orientation Not on file Obstetrics History Para Term AB IAB SAB Ectopic Multiple Livin g Live Births 3 2 2 2 Date Outcome GA Total Labor Labor/2nd/3rd Weight Sex Type Anes PTL Michela A1 A5 Name Clin Term Term Last Filed Vital Signs Vital Sign Reading Time Taken Comments Blood Pressure 132/85 05/13/2025 9:30 AM CDT Pulse 61 05/13/2025 9:30 AM CDT Temperature 36.2 C (97.1 F) 05/13/2025 9:30 AM CDT Respiratory Rate 20 05/13/2025 9:30 AM CDT Oxygen Saturation 98% 05/13/2025 9:30 AM CDT Inhaled Oxygen Concentration - - Weight 60.3 kg (133 lb) 05/13/2025 9:30 AM CDT Height 162.6 cm (5' 4.02) 05/04/2025 11:24 AM C DT Body Mass Index 22.82 05/04/2025 11:24 AM CDT Plan of Treatment Health Maintenance Due Date Last Done Comments Hepatitis B Screening 11/22/1995 Pneumococcal vaccine <65 (1 of 2 - PCV) 1996 DTaP/Tdap/Td Vaccine (2 - Td or Tdap) 11/14/2020 11/14/2010 Covid-19 Vaccine (2 - 2024-2 6 season) 2025 08/22/2021 Influenza Vaccine (#1) 2025 Regular Well Visit/Exam 18-64 11/12/2025, 11/12/2024, 09/12/2023, Additional history exists Breast Cancer Screening-Mammogram 04/02/2026 04/02/2025, 04/02/2024, 05/09/2021, Additional history exists Depression Screening 05/13/2026 05/13/2025, 05/04/2025, 11/12/2024, Additional history exists Colon Cancer Screening-Colonoscopy 11/07/20332023 Hepatitis C Screening Completed 04/19/2021 Medical Devices Implanted Type Area Bullet Swaging Machine Operator Device Identifier Shelf Expiration Date Model / Serial / Lot Bard Peripheral Vascular [id number] Ultraclip Bard 17ga 10cm 2 Trigger Permanent Ultrasound - [id number] - [id number] Implanted:Qty : 1 on 05/20/2021 by Adolfo Cochran MD at [facility] Breast Left: Breast [employer] Per[employer] 12/06/2023 [id number] / [id number] / Description:Implanted left b reast at 2:00 area 4 cmfn Bard Peripheral Vascular [id number] Ultraclip Bard 17ga 12cm 2 Trigger Permanent Ultrasound - [id number] - [id number] Implanted:Qty : 1 on 05/20/2021 by Adolfo Cochran MD at [facility] Breast Left: Breast [employer] 12/06/2023 [id number] / [id number] / Description:Implanted at 2:0 0 area 5cmfn Bard Peripheral Vascular [id number] Ultraclip Bard 17ga 10cm 2 Trigger Permanent Ultrasound - [id number] - [id number] Implanted:Qty : 1 on 05/20/2021 by Adolfo Cochran MD at [facility] Breast Left: Breast [employer] Peripheral [employer] 01/06/2024 [id number] / [id number] / Description:Implanted Left B reast 2:30 area 7cmfn Bard Peripheral Vascular [id number] Ultraclip Bard 17ga 10cm 2 Trigger Permanent Ultrasound - [id number] - [id number] Implanted:Qty : 1 on 05/20/2021 by Adolfo Cochran MD at [facility] Breast Right: Breast [employer] 12/06/2023 [id number] / [id number] / Description:Implanted Right Breast at 12:00 area 6cmfn [employer] [id number] Ultraclip Bard 17ga 10cm 2 Trigger Permanent Ultrasound - [id number] [id number] - [id number] Implanted:Qty : 1 on 05/20/2021 by Adolfo Cochran MD at [facility] Breast Right: Breast [employer] 12/06/2023 [id number] / [id number] / Description:Implanted Right Breast 9:00 area 7cmfn [employer] [id number] Ultraclip Bard 17ga 12cm 2 Trigger Permanent Ultrasound - [id number] [id number] - [id number] Implanted:Qty : 1 on 05/20/2021 by Adolfo Cochran MD at [facility] Breast Right: Breast [employer] 12/06/2023 [id number] / [id number] / Description:Implanted Right Breast 9:00area 6cmfn [employer] System Biceps [place] Slotted Drill Guide 1.9mm Drill Fibertak [id number] - [id number] Implanted:Qty : 1 on 03/30/2023 by Luis Alberto Britton MD at [facility] Left: Shoulder [employer] [id number] 01/08/2028 AR-[id number] / / [id number] Procedures Procedure Name Priority Date/Time Associated Diagnosis Comments XR CHEST PA LATERAL 2 VIEWS Schedule Routine, Read Routine (OP Routine) 05/13/2025 10:29 AM CDT Subacute cough SCREENING MAMMOGRAM BILATERAL W TONY Schedule Routine, Read Routine (OP Routine) 04/02/2025 10:09 AM CDT Screening mammogram, encounter for COLONOSCOPY 11/07/2023 7:37 AM BRIDGE WELDER HEPATITIS C ANTIBODY Routine 04/19/2021 9:28 AM CDT Need for hepatitis C screening test from Last 3 Months or Most Recently Relevant to Health Maintenance Results * XR Chest PA Lateral 2 Views (05/13/2025 10:29 AM CDT) Anatomical Region Laterality Modality Body, Chest N/A Computed Radiogr aphy 05/18/2025 4:04 PM CDT Narrative 05/18/2025 4:04 PM CDT EXAM DESCRIPTION: XR CHEST PA LATERAL 2 VIEWS REASON FOR STUDY: cough for 4 weeks Cough X's 4 weeks. Completed meds. Still has cough. No fever. Smoker. No history of cough TECHNIQUE: 2 radiographic view(s) of the chest. COMPARISON: None available FINDINGS: The cardiomediastinal silhouette appears normal. There is no airspace consolidation or pleural effusion. IMPRESSION: No acute findings THIS IS AN ELECTRONICALLY VERIFIED FINAL REPORT 05/18/2025 4:04 PM - Electronically signed by Hank ÁLVAREZ JR Report ID: [id number] Reading Location: [id number] Procedure Note Hank Johnson MD - 05/18/2025 EXAM DESCRIPTION: XR CHEST PA LATERAL 2 VIEWS REASON FOR STUDY: cough for 4 weeks Cough X's 4 weeks. Completed meds. Still has cough. No fever. Smoker.No history of cough TECHNIQUE: 2 radiographic view(s) of the chest. COMPARISON: None available FINDINGS: The cardiomediastinal silhouette appears normal. There is no airspace consolidation or pleural effusion. IMPRESSION: No acute findings THIS IS AN ELECTRONICALLY VERIFIED FINAL REPORT 05/18/2025 4:04 PM - Electronically signed by Hank ÁLVAREZ JR Report ID: [id number] Reading Location: [id number] us Lauren Nguyen FLAVOR TANK TENDER IMG XR PROCEDURES Final Resu lt * Screening Mammogram Bilateral W Tony (04/02/2025 10:09 AM CDT) Anatomical Region Laterality Modality Breast Bilateral Mammography Impressions 04/03/2025 11:25 AM CDT Bilateral 1) Mass: Both breasts masses (multiple findings). OVERALL BI-RADS FINAL ASSESSMENT: 2 - Benign RECOMMENDATION: Recommend bilateral annual screening mammography. Narrative 04/03/2025 11:25 AM CDT EXAMINATION: Screening Mammogram Bilateral W Tony: 04/02/2025 COMPARISON: Relevant prior studies available at the time of interpretation were reviewed, including the most recent mammogram on: 04/02/2024. TECHNIQUE: Mammography was performed with 2D and digital breast tomosynthesis (DBT) images. CAD was utilized. BREAST PARENCHYMAL COMPOSITION: The breasts are heterogeneously dense, which may obscure small masses. FINDINGS: Bilateral 1) Mass: There are multiple similar oval masses seen in both breasts. us Self Screening Mammogram IMG MAMMO PROCEDURES Fi nal Result * Colonoscopy (11/07/2023 7:37 AM BRIDGE WELDER) Anatomical Region Laterality Modality Other Narrative Procedure Note Sarahy Wiseman MD - 11/07/2023 7:37 AM CST [facility] Patient Name: Anahi Whittaker Procedure Date: 11/07/2023 7:37 AM Date of : 1975 Admit Type: Outpatient Age: 47 Gender: Female Attending MD: Sarahy Wiseman M.D. Room: [facility] ENDOSCOPY ROOM 1 Note Status: Finalized Patient Profile: This is a 47 year old female. No family history of colon cancer. Noted recurrent episodes of brightred bleeding per rectum Procedure: Colonoscopy Indications: Screening for colorectal malignant neoplasm Referring MD: Peewee Alarcon M.D. Providers: Sarahy Wiseman M.D. Impression: - Two 5 to 8 mm polyps in the sigmoid colon,removed with a cold snare. Resected and retrieved. - One 10 mm polyp in the distal rectum, removedusing injection-lift and a hot snare. Resected and retrieved. Clip (MR conditional) was placed. 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 - Internal hemorrhoids. Treated with thermaltherapy. Recommendation: - Await pathology results. - Repeat colonoscopy in 3 years for surveillance. - If bleeding continued after 2 weeks of this treatment then banding of internal hemorrhoids canbe planned as outpatient. Medicines: Monitored Anesthesia Care Complications: No immediate complications. Estimated Blood Loss: Estimated blood loss: none. Procedure: Pre-Anesthesia Assessment: - Prior to the procedure, a History and Physicalwas performed, and patient medications and allergieswere reviewed. The patient's tolerance of previous anesthesia was also reviewed. The risks andbenefits of the procedure and the sedation options and risks were discussed with the patient. All questions were answered, and informed consent was obtained. Prior Anticoagulants: The patient has taken noanticoagulant or antiplatelet agents. ASA Grade Assessment: Per anesthesia note and evaluation. After reviewing the risks and benefits, the patient was deemed in satisfactory condition to undergo the procedure. The benefits, risks and alternatives of theprocedure and sedation were discussed and informed consentwas obtained. All questions were answered. Please referto the signed informed consent document in the medical record. The bowel preparation used was Miralax and bisacodyl tablets via split dose instruction. The scope was passed under direct vision. The Pediatric Colonoscope [id number]-[id number] was introducedthrough the anus and advanced to the the cecum, identifiedby appendiceal orifice and ileocecal valve. Thequality of the bowel preparation was good. Bowel prep was administered using a split dose. Findings: The perianal and digital rectal examinations were normal. The descending colon, transverse colon, ascending colon and cecum appeared normal. Two flat polyps were found in the sigmoid colon. The polyps were 5 to8 mm in size. These polyps were removed with a cold snare. Resectionand retrieval were complete. A 10 mm polyp was found in the distal rectum. The polyp was sessile.The polyp was removed with a saline injection-lift technique using a hot snare. Resection and retrieval were complete. To prevent bleedingafter the polypectomy, one hemostatic clip was successfully placed (MR conditional). 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 There was no bleeding at the end of the procedure. Internal hemorrhoids were found during retroflexion. The hemorrhoids were medium-sized. Coagulation to prevent future bleeding of internal hemorrhoids using IRC (Infrared Coagulation) was successful. Electronically signed by Sarahy Wiseman M.D. Sarahy Wiseman M.D. 11/07/2023 9:40:46 AM Number of Addenda: 0 Note Initiated On: 11/07/2023 7:37 AM Procedure Code(s): --- Professional --- 85953, Colonoscopy, flexible; with removal of tumor(s), polyp(s), or other lesion(s) by snare technique 24420, Colonoscopy, flexible; with directed submucosal injection(s),any substance 66746, Destruction of internal hemorrhoid(s) by thermal energy (eg, infrared coagulation, cautery, radiofrequency) Diagnosis Code(s): --- Professional --- Z12.11, Encounter for screening for malignant neoplasm of colon K64.8, Other hemorrhoids D12.5, Benign neoplasm of sigmoid colon D12.8, Benign neoplasm of rectum CPT copyright 2020 [employer]. All rights reserved. The codes documented in this report are preliminary and upon personnel interviewer reviewmay be revised to meet current compliance requirements. Recognized by the [employer] for promoting quality in endoscopy Sarahy Wiseman MD ENDOSCOPY PROCEDURES Final Result * Hepatitis C antibody (04/19/2021 9:28 AM CDT) Hep C Ab Nonreactive Nonreactive [facility] ([facility]) Comment: Interpretive Data Nonreactive: Antibodies to HCV not detected. Does NOT exclude the possibility of recent exposure to HCV. Equivocal: Equivocal for HCV antibodies. Supplemental molecular testing will be automatically performed to determine infection status in accordance with current CDC screening recommendations. Reactive: Positive for HCV antibodies. This may represent current or past HCV infection. Supplemental molecular testing will be automatically performed to determine current infection status in accordance with current CDC screening recommendations. Interpretive data was last revised on 2019. 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 03/03/24 03/03/2024 03/03/2024 Insurance [employer] [place] [employer] [place] [employer] [place] Advance Directives For more information, please contact: [phone] * Full Code (Latest Code Status on File) Date Activated Date Inactivated Comments 11/07/2023 7:30 AM 11/07/2023 2:17 PM * Full Code Date Activated Date Inactivated Comments 11/07/2023 7:30 AM 11/07/2023 7:30 AM Care Teams Lockstitch Sleeve Maker Relationship Specialty Start Date End Date Dennise Lopez FLAVOR TANK TENDER [address] [place] [address] [address] PCP - General Family Medicine 11/12/24 Mary Fabian MD [address] [facility] [address] [place] [address] Obstetrics and Gynecology 09/12/23
--- NOTE | 2025-08-03 07:14 | WPDHPUPDATE1 ---
History and Physical Update Update Date/Time: 08/03/25 07:14 History and Physical has been reviewed, including an updated exam of the patient. There are NO changes in the patient's condition. Risks, benefits, and alternatives have been discussed and questions answered. Patient agrees to proceed with procedure.
[2025-08-03] MEDS: LACTATED RINGERS 1,000 ML 30 ML IV CONT (09:30)
--- NOTE | 2025-08-03 10:31 | P.PNAN_ITS ---
Anes - Initial Pre Proc Eval Procedure: Operation Date: 08/03/25 11:00 Proposed Procedures p Urethral Sling - Rico Selby MD Date/Time: 08/03/25 10:31 Surgeon: Rico Selby MD Pre Op Diagnosis: stress incont Patient Data Age: 49 Gender: F Height: 1.6 m Weight: 59 kg Allergies Allergy/AdvReac Type Severity Reaction Status Date / Time eggs AdvReac Intermediate Vomiting Uncoded 07/14/25 10:41 Home Medications ?Medication ?Instructions ?Recorded ?Confirmed ?Type fluoxetine 10 mg capsule (Prozac) 10 mg PO DAILY #90 c aps 07/28/24 07/21/25 Rx estradiol 0.05 mg/24 hr semiweekly 1 patch transdermal 2XW #8 ea 07/14/25 07/21/25 Rx transdermal patch (Gill) hydrocodone 5 mg-acetaminophen 325 1 tablet PO Q6H PRN pain #20 tabs 08/03/25 Rx mg tablet Patient hx anesthesia problems: none Family hx anesthesia problems: none Results Review: All pre-operative results and documents have been reviewed as part of the pre- operative evaluation. [facility] Past Medical History Medical History GEORGINA (stress urinary incontinence, female) Benign breast lumps Leiomyoma Healthy female adult Surgical History Surgical History H/O lumpectomy 03/2024 History of endometrial ablation S/P laparoscopic hysterectomy 02/21/22 History of breast biopsy 08/22/2021- BILATERAL BX DONE XS 3 - BENGINS FINDINGS PER PT History of knee surgery History of tubal ligation History of cholecystectomy Family History Family History Mother Cerebrovascular accident Other Acute myocardial infarction Heart disease Social History Social History Smoking packs per day: 0.5 Smoking cigarettes per day: 10.0 Years smoked: 15 Smoking pack-years: 7.50 Smoking status: Current every day smoker Tobacco type: cigarettes Alcohol intake: never Alcohol use details: rarely Substance use: never Substance use type: does not use Do You Feel Safe in your Home?: Yes Lack of Transportation: No Lack of Food: Never True Current Housing: I Have Housing Concerned About Future Housing: No Difficulty Paying Gas/Electric Bills: No Difficulty Paying for Meds: No Currently Unemployed: No Education: High School Diploma/GED Difficulty w/ Childcare or Family Care: No Living arrangements: with family Occupation/Education: occupation 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 Gender identity (if verbalized by the patient): Female Sexual Orientation (if Verbalized by the Patient): Straight or Heterosexual Spiritual care concerns: No Anes - Eval Final PreProcedure Day of Procedure 08/03/25 10:31 Patient weight: normal Heart: regular rate and rhythm Lungs: clear to auscultation Airway: Mallampati scale class II Neurological: alert and oriented Last oral intake: >/= 8 hours ASA classification: II Emergent: no Anesthetic plan: proceed Anesthesia type and monitoring: general GIVS and standard monitoring Results Review: All pre-operative results and documents have been reviewed as part of the pre- operative evaluation. Informed Consent: The patient's anesthetic plan and its attendant risks and benefits were discussed with the patient/family/POA. Questions were solicited and answers provided to the satisfaction of the patient/family/POA.
[2025-08-03] MEDS: ceFAZolin 2 GM in SODIUM CHLORIDE 0.9% IV 50 ML 100 ML IVPB (10:49)
[2025-08-03 10:50] VITALS: BP 101/60; PULSE 69; TEMP 36.2; O2SAT 100; BMI 22.8
[2025-08-03] MEDS: BUPIVACAINE/EPINEPHRINE 0.5% 50 ML VIAL 25 ML INFILTRATE (11:02)
[2025-08-03 11:27] VITALS: BP 93/56; PULSE 60
--- NOTE | 2025-08-03 11:38 | W.PM.PROC2 ---
Procedure Note - Detailed Date of Procedure 08/03/25 Pre-op Diagnosis stress incont Post-op Diagnosis Same Procedure Performed mid urethral sling cystoscopy Surgeon Rico Selby MD Anesthesia MAC and Local Indications This is a female with confirm stress urinary incontinence. She desires surgical correction. She understands the risks of bleeding, infection, injury to the urinary tract, vaginal mesh extrusion, urinary tract mesh erosion, obstructive voiding requiring a secondary procedure, hip and leg pain, dyspareunia, inability to improve overactive bladder symptoms. She agrees to proceed. Description of Procedure She was correctly identified. Informed consent obtained. She was brought the operating room. She was given appropriate anesthesia. She was given appropriate perioperative antibiotics. A time-out performed. I marked out the site of the inner thigh incisions. I anesthetized the skin and made those incisions. I anesthetized the anterior vaginal wall over the mid urethra. I made a 1 cm incision. I dissected out laterally taking great care not to injure the refilled vaginal wall. I passed the helical trocars. First on the left. Then on the right. I did this from the thigh incision towards the vaginal incision. The sling was connected to the trocars and brought out through the thigh incision. I tensioned the sling appropriately. I cut and the plastic sheaths. I then closed the incision with 2 0 Vicryl. On cystoscopy there is no tumors or surgical artifact. There was no surgical artifact in the urethra. I cut the excess sling material. Close incisions with glue. She was awakened and transferred to the PACU in stable condition. Implants Urethral sling Drains No Packing No Pathology None sent Complications No immediate complications Condition Stable Disposition PACU
[2025-08-03 11:40] VITALS: BP 98/65; PULSE 60
[2025-08-03 11:45] VITALS: BP 112/57
[2025-08-03 12:00] VITALS: BP 109/64; PULSE 48
[2025-08-03 12:25] VITALS: BP 100/65; PULSE 60
== END 2025-08-03 12:26 | disposition home or self-care (01) ==
PROVIDERS: Visit Provider Urology
PROC: (CPT 57288; principal; 2025-08-03 11:00)
DX: N39.3 Stress incontinence (female) (male) (principal); F17.210 Nicotine dependence, cigarettes, uncomplicated; Z79.891 Long term (current) use of opiate analgesic; Z98.890 Other specified postprocedural states; Z98.891 History of uterine scar from previous surgery; Z98.51 Tubal ligation status; Z90.49 Acquired absence of other specified parts of digestive tract; Z82.49 Family history of ischemic heart disease and other diseases of the circulatory system
CPT/HCPCS: 57288; J0690; C1771; J1100; J2003; J2250; J2405; J2704; J3010; J7030; J7120

== ENCOUNTER 2025-08-13 10:25 | Emergency (ER) | payer BC, SELFPAY ==
[2025-08-13 10:30] VITALS: BP 126/81; PULSE 71; RESP 14; TEMP 36.6; O2SAT 100
--- NOTE | 2025-08-13 10:56 | ED.FEMALEGU ---
HPI - Female Genitourinary General Chief complaint: Urogenital-Female Stated complaint: UTI Time Seen by Provider: 08/13/25 10:56 Source: patient, RN notes reviewed and old records reviewed Mode of arrival: ambulatory Limitations: no limitations History of Present Illness HPI Narrative: 49-year-old female presents to the [facility] with complaints of frequency, urgency burning as well as suprapubic pressure since 5:00 a.m. yesterday morning. Reports today she started with some nausea. Did take azo today. Patient has a history of a bladder sling on August 03. States that she called Dr. Selby office urology today, could not make it to the appointment that they suggested, states that they offered her 1 tomorrow but could not wait due to her symptoms. Onset (ago): day(s) (1) Related Data Allergies Allergy/AdvReac Type Severity Reaction Status Date / Time Egg Derived AdvReac Unknown Vomiting Verified 08/13/25 10:35 Review of Systems Review of Systems: All systems reviewed & are unremarkable except as noted in HPI and below Constitutional: Constitutional: Reports no additional constitutional complaints ENT: Reports system reviewed and no additional complaints, except as documented Cardiovascular: Cardiovascular: Reports no additional cardiovascular complaints, Denies chest pain and Denies dyspnea Respiratory: Respiratory: Reports no additional respiratory complaints, Denies chest congestion, Denies cough and Denies dyspnea Genitourinary: Genitourinary: Reports as per HPI Musculoskeletal: Musculoskeletal: Reports no additional musculoskeletal complaints Integumentary/Breasts: Skin/Breast: Reports system reviewed and no additional complaints, except as docu PMFSH Past Medical History Medical History GEORGINA (stress urinary incontinence, female) Benign breast lumps Leiomyoma Healthy female adult Surgical History Surgical History H/O lumpectomy 03/2024 History of endometrial ablation S/P laparoscopic hysterectomy 02/21/22 History of breast biopsy 08/22/2021- BILATERAL BX DONE XS 3 - BENGINS FINDINGS PER PT History of knee surgery History of tubal ligation History of cholecystectomy Family History Family History Mother Cerebrovascular accident Other Acute myocardial infarction Heart disease Social History Social History Smoking packs per day: 0.5 Smoking cigarettes per day: 10.0 Years smoked: 15 Smoking pack-years: 7.50 Smoking status: Current every day smoker Tobacco type: cigarettes Alcohol intake: never Alcohol use details: rarely Substance use: never Substance use type: does not use Lack of Transportation: No Lack of Food: Never True Current Housing: I Have Housing Concerned About Future Housing: No Difficulty Paying Gas/Electric Bills: No Difficulty Paying for Meds: No Currently Unemployed: No Education: High School Diploma/GED Difficulty w/ Childcare or Family Care: No Living arrangements: with family Occupation/Education: occupation 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 There is no relevant family history pertinent to the patient complaint. Exam Const: General: cooperative, healthy appearing, comfortable, no acute distress, well developed, alert and well nourished Nutritional Appearance: well nourished Orientation/consciousness: patient oriented x3 Limitations: no limitations HENMT: Head: normal to inspection Mouth: Yes Normal oral and palatal mucosa present, Yes lip normal, Yes tongue normal and Yes moist mucous membranes abnormal Eyes: General: appearance normal, both eyes and all related structures Alignment and Position: alignment normal Neck: Neck: normal visual inspection, full ROM, no lymphadenopathy and no meningeal signs Chest: Chest palpation & inspection: normal inspection of the chest Resp: Effort & Inspection: normal respiratory effort and able to speak in complete sentences Auscultation: clear to auscultation bilaterally, no crackles, no rales, no rhonchi and no wheezes Cardio: Rate: regular rate GI: GI Palp: No abdominal tenderness : General: Yes no CVA tenderness Skin: General skin exam: normal color and no rashes or lesions noted Neuro: General: patient oriented x3, gait normal, moves all extremities and no meningeal signs Cognition (Neuro): normal cognition Speech: normal speech Gait exam (Neuro): Normal gait present Extrem: General: normal to inspection, full ROM, capillary refill normal and normal gait Psych: Appearance: grossly normal and well kempt Mental Status: mental status grossly normal Speech and movement: Normal speech and movement present and Clear speech present Affect: normal affect Attitude: cooperative Course Course Level of Care: Express Care Visit Vital Signs Vital signs: Vital Signs Temperature 97.8 F 08/13/25 10:30 Pulse Rate 71 08/13/25 10:30 Respiratory Rate 14 08/13/25 10:30 Blood Pressure 126/81 08/13/25 10:30 Pulse Oximetry 100 08/13/25 10:30 Oxygen Delivery Room Air 08/13/25 10:30 Temperature 97.8 F 08/13/25 10:30 Pulse Rate 71 08/13/25 10:30 Respiratory Rate 14 08/13/25 10:30 Blood Pressure 126/81 08/13/25 10:30 Pulse Oximetry 100 08/13/25 10:30 Oxygen Delivery Room Air 08/13/25 10:30 Reviewed MDM MDM Narrative Medical decision making narrative: patient sitting in exam room. Patient is nontoxic, vitals stable. Patient reports 1 day history of frequency urgency burning and suprapubic pressure with nausea. Did take azo, unable to do urine dip. Will send for culture. Due to patient's recent surgery encourage patient to call back her urologist in actually see for further evaluation. Will start on Augmentin patient in no acute distress. Patient to follow-up with Dr. Soliz in urology Discharge instructions reviewed with patient, as well as provided in writing per nursing staff. The instructions also include specific and strict return/GO TO THE ER as well as f/u information. All questions have been answered, and the patient deny any further questions with discharge and discharge plan. Some parts of this dictation were generated by voice recognition software and may contain typographical and/or grammatical inaccuracies. Differential Diagnosis Differential Diagnosis: Differential diagnostic considerations for female urogenital? issues include urinary tract infection, bacterial vaginosis, cervicitis, ovarian cyst, vaginitis, STI exposure, ovarian torsion, ectopic , cyst of Bartholin?s gland, cystitis, dysmenorrhea.?? Critical Care Time Critical Care Time Critical Care Time: No Discharge Plan Discharge Clinical Impression: Dysuria Patient Disposition: Home Condition: Stable Instructions: Antibiotic Form, Dysuria (ED) Additional Instructions: please follow-up with urology urine was sent for culture. Take antibiotic as prescribed for new or worsening symptoms go directly to the emergency room Patient Language: Gibraltarian Prescriptions: New amoxicillin-pot clavulanate 875-125 mg tablet 1 tablet PO Q12H Qty: 10 0RF No Action fluoxetine [Prozac] 10 mg capsule 10 mg PO DAILY Qty: 90 3RF estradiol [Gill] 0.05 mg/24 hr patch semiweekly 1 patch transdermal 2XW Qty: 8 3RF Rx Instructions: apply 1 patch for 3 days alternating with 1 patch for 4 days each week hydrocodone-acetaminophen 5-325 mg tablet 1 tablet PO Q6H PRN (Reason: pain) Qty: 20 0RF Follow-up/Referrals: Rico Selby MD [Physician, Urology] - 3 Days Clinical Impression: Dysuria PHYSICIAN NOT ON STAFF,NONSTAFF [Primary Care Provider] Time of Disposition: 11:09
--- OUTSIDE RECORDS SUMMARY | 2025-08-13 11:34 | XMS_ITS | Clinical Summary ---
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 which she previously took Valtrex as needed for -Patient reports experiencing multiple cold sores in the past couple of months -Valtrex 1 g prescribed for episodes of cold sores -Encouraged patient to reach out to office if not improved with medication -Continue current treatment plan Food intolerance 11/12/2024 Assessment & Plan (11/12/2024 10:01 AM SOFTWARE QUALITY MANAGER): -New concern -Patient reports long history egg [...] diet Assessment & Plan (11/12/2024 9:57 AM SOFTWARE QUALITY MANAGER): Wt Readings from Last 3 Encounters: 11/12/24 [...] diet Assessment & Plan (09/22/2024 1:05 PM SOFTWARE QUALITY MANAGER): Wt Readings from Last 3 Encounters: 09/22/24 [...] retrieved. Clip (MR conditional) was placed. Clip dietitian consultant: [employer]. - Internal hemorrhoids. Treated with thermal therapy. Recommendation: - Await pathology results. - Repeat colonoscopy in 3 years for surveillance. - If bleeding continued after 2 weeks of this treatment then banding of internal hemorrhoids can be planned as outpatient Encounter for screening colonoscopy 10/17/2023 Rectal bleeding 09/12/2023 Assessment & Plan (10/17/2023 7:26 PM SOFTWARE QUALITY MANAGER): Has been noticing rectal bleeding for the [...] cancer Assessment & Plan (09/12/2023 1:20 PM SOFTWARE QUALITY MANAGER): - painless, bright red blood reported per [...] 07/20/2021 Assessment & Plan (07/20/2021 8:49 AM SOFTWARE QUALITY MANAGER): - has been told in past that [...] malignancy Assessment & Plan (07/20/2021 11:24 AM SOFTWARE QUALITY MANAGER): - recent diagnosis, stable - noted After [...] 04/19/2021 Assessment & Plan (11/12/2024 10:00 AM SOFTWARE QUALITY MANAGER): Tobacco Use: High Risk (11/12/2024) Patient History [...] -encouraged patient to utilize resources such as [id number] -continue current treatment plan -total time spent on tobacco cessation education 3 minutes Assessment & Plan (09/12/2023 11:04 AM SOFTWARE QUALITY MANAGER): Social History Tobacco Use Smoking Status Every Day Packs/day: 1.00 Years: 20.00 Additional pack years: 0.00 Total pack years: 20.00 Types: Cigarettes Start date: 09/10/1999 Passive exposure: Current Smokeless Tobacco Never - chronic, improved - currently smoking less than 1/2 a pack a day, which Is encouraging - discussed the importance of tobacco smoking cessation Assessment & Plan (07/20/2021 8:40 AM SOFTWARE QUALITY MANAGER): Social History Tobacco Use Smoking Status Current [...] disease) Assessment & Plan (11/12/2024 9:58 AM SOFTWARE QUALITY MANAGER): -chronic, controlled -patient currently managed without medication -patient encouraged to continue avoiding trigger foods and remaining upright at least 30 minutes after eating or drinking -continue current treatment plan Assessment & Plan (09/12/2023 10:56 AM SOFTWARE QUALITY MANAGER): - chronic, well controlled - currently on [...] stomach. Assessment & Plan (07/20/2021 8:40 AM SOFTWARE QUALITY MANAGER): - chronic, better, not at goal - [...] of cdif and vit B12 deficiency with fdc use of PPI with pt, would like [...] 04/19/2021 Assessment & Plan (11/12/2024 9:15 AM SOFTWARE QUALITY MANAGER): - New or chronic worsening conditions: recent [...] - Cervical Cancer screening: Up-to-date, follows with occupational health manager - Breast Cancer screening: Up-to-date - Colon cancer screening: Up-to-date - Lung cancer screening: Not indicated at this time - Bone desnity/osteoporosis screening: Not indicated at this time - control: Tubal ligation Assessment & Plan (09/12/2023 11:14 AM SOFTWARE QUALITY MANAGER): - New or chronic worsening conditions: rectal [...] Department Care Team Description 05/20/2025 Results Follow-Up [facility] Primary Care at [address] [place] [address] Lauren Nguyen NP XR Chest PA Lateral 2 Views from Last 3 Months Immunizations Immunization Administration [...] on file Legal Sex Female 11:24 AM SOFTWARE QUALITY MANAGER Gender Identity Not on file Sexual Orientation [...] Completed 04/19/2021 Medical Devices Implanted Type Area Back Hand Device Identifier Shelf Expiration Date Model / Serial / Lot Bard Peripheral Vascular [id number] Ultraclip Bard 17ga 10cm 2 Trigger Permanent Ultrasound - [id number] [id number] - [id number] Implanted:Qty : 1 on 05/20/2021 by Adolfo Cochran MD at [facility] Breast Left: Breast Bard Peripheral Vascular 12/06/2023 [id number] / [id number] / Description:Implanted left b reast at 2:00 area 4 cmfn Bard Peripheral Vascular [id number] Ultraclip Bard 17ga 12cm 2 Trigger Permanent Ultrasound - [id number] - [id number] Implanted:Qty : 1 on 05/20/2021 by Adolfo Cochran MD at [facility] Breast Left: Breast Bard Peripheral Vascular 12/06/2023 [id number] / [id number] / Description:Implanted at 2:0 0 area 5cmfn Bard Peripheral Vascular [id number] Ultraclip Bard 17ga 10cm 2 Trigger Permanent Ultrasound - [id number] [id number] - [id number] Implanted:Qty : 1 on 05/20/2021 by Adolfo Cochran MD at [facility] Breast Left: Breast Bard Peripheral Vascular 01/06/2024 [id number] / [id number] / Description:Implanted Left B reast 2:30 area 7cmfn Bard Peripheral Vascular [id number] Ultraclip Bard 17ga 10cm 2 Trigger Permanent Ultrasound - [id number] [id number] - [id number] Implanted:Qty : 1 on 05/20/2021 by Adolfo Cochran MD at [facility] Breast Right: Breast Bard Peripheral Vascular 12/06/2023 [id number] / [id number] / Description:Implanted Right Breast at 12:00 area 6cmfn Bard Peripheral Vascular [id number] Ultraclip Bard 17ga 10cm 2 Trigger Permanent Ultrasound - [id number] [id number] - [id number] Implanted:Qty : 1 on 05/20/2021 by Adolfo Cochran MD at [facility] Breast Right: Breast Bard Peripheral Vascular 12/06/2023 [id number] / [id number] / Description:Implanted Right Breast 9:00 area 7cmfn Bard Peripheral Vascular [id number] Ultraclip Bard 17ga 12cm 2 Trigger Permanent Ultrasound - [id number] [id number] - [id number] Implanted:Qty : 1 on 05/20/2021 by Adolfo Cochran MD at [facility] Breast Right: Breast Bard Peripheral Vascular 12/06/2023 [id number] / [id number] / Description:Implanted Right Breast 9:00area 6cmfn [employer] System Biceps [place] Slotted Drill Guide 1.9mm Drill [employer]ak Ar-3670 - [id number] Implanted:Qty : 1 on 03/30/2023 by Luis Alberto Britton MD at [facility] Left: Shoulder [employer] [id number] 01/08/2028 AR-3670 / / [id number] Procedures Procedure Name Priority Date/Time Associated Diagnosis Comments SCREENING MAMMOGRAM BILATERAL W TONY Schedule Routine, Read Routine (OP Routine) 04/02/2025 10:09 AM CDT Screening mammogram, encounter for COLONOSCOPY 11/07/2023 7:37 AM SOFTWARE QUALITY MANAGER HEPATITIS C ANTIBODY Routine 04/19/2021 9:28 AM CDT Need for hepatitis C screening test from Last 3 Months or Most Recently Relevant to Health Maintenance Results * Screening Mammogram Bilateral W Tony (04/02/2025 [...] nal Result * Colonoscopy (11/07/2023 7:37 AM SOFTWARE QUALITY MANAGER) Anatomical Region Laterality Modality Other Narrative Procedure Note Sarahy Wiseman MD - 11/07/2023 7:37 AM CST [facility] Patient Name: Anahi Whittaekr Procedure Date: 11/07/2023 7:37 AM Date of : 1975 Admit Type: Outpatient Age: 47 Gender: Female Attending MD: Sarahy Wiseman M.D. Room: [facility] END[facility]COPY ROOM 1 Note Status: Finalized Patient [...] retrieved. Clip (MR conditional) was placed. Clip dietitian consultant: [employer]. - Internal hemorrhoids. Treated with thermaltherapy. Recommendation: [...] under direct vision. The Pediatric Colonoscope [id number]-[id number] was introducedthrough the anus and advanced to [...] clip was successfully placed (MR conditional). Clip dietitian consultant: [employer]. There was no bleeding at the end of the procedure. Internal hemorrhoids were found during retroflexion. The hemorrhoids were medium-sized. Coagulation to prevent future bleeding of internal hemorrhoids using IRC (Infrared Coagulation) was successful. Electronically signed by Sarahy Wiseman M.D. Sarahy Wiseman M.D. 11/07/2023 9:40:46 AM Number of Addenda: 0 Note Initiated On: 11/07/2023 7:37 AM Procedure Code(s): --- Professional --- 42679, Colonoscopy, flexible; with removal of tumor(s), polyp(s), or other lesion(s) by snare technique 32218, Colonoscopy, flexible; with directed submucosal injection(s),any substance 15158, Destruction of internal hemorrhoid(s) by thermal energy (eg, infrared coagulation, cautery, radiofrequency) Diagnosis Code(s): --- Professional --- Z12.11, Encounter for screening for malignant neoplasm of colon K64.8, Other hemorrhoids D12.5, Benign neoplasm of sigmoid colon D12.8, Benign neoplasm of rectum CPT copyright 2020 [employer]. All rights reserved. The codes documented in this report are preliminary and upon airport operations coordinator reviewmay be revised to meet current compliance requirements. Recognized by the [employer] for promoting quality in endoscopy Sarahy Wiseman MD ENDOSCOPY PROCEDURES Final Result * Hepatitis C antibody (04/19/2021 9:28 AM CDT) Hep C Ab Nonreactive Nonreactive [facility] ([place]) Comment: Interpretive Data Nonreactive: Antibodies to HCV [...] last revised on 2019. Testing performed by: 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 03/03/24 03/03/2024 03/03/2024 Insurance Victor [place] Advance Directives For more information, please contact: [phone] * Full Code (Latest Code Status on File) Date Activated Date Inactivated Comments 11/07/2023 7:30 AM 11/07/2023 2:17 PM * Full Code Date Activated Date Inactivated Comments 11/07/2023 7:30 AM 11/07/2023 7:30 AM Care Teams Injection Operator Relationship Specialty Start Date End Date Dennise Lopez NP [address] [place] [address] [address] [place] [id number] PCP - General Family Medicine 11/12/24 Mary Fabian MD [address] [facility] [address] [place] [address] Obstetrics and Gynecology 09/12/23
--- OUTSIDE RECORDS SUMMARY | 2025-08-13 11:34 | XMS_ITS | Encounter Summary ---
Author Organization [facility] Healthcare Address [address] [place] [address] Care Team Providers Care Rn Hemodialysis Charge Name Role Phone Prerna Gonzales NP Unavailable [phone] Peewee Alarcon MD Primary Care Provider Sherrie Ellington MA Unavailable Mary Fabian MD Unavailable [phone] Dennise Lopez NP Primary Care Provider Reason for Visit * Reason Onset Date Comments Scheduling Appointments 04/25/2021 Confirmi mg mammogram appt- no answer Encounter Details Date Type Department Care Team (Late st Contact Info) Description 04/25/2021 Telephone [facility] [address] [place] [address] Meena Joshi RT Scheduling Appointments (Confirmimg mammogram [...] on file Legal Sex Female 11:24 AM VETERAN APPEALS REVIEWER Gender Identity Not on file Sexual Orientation [...] documented as of this encounter Care Teams Rn Hemodialysis Charge Relationship Specialty Start Date End Date Peewee Alarcon MD PCP - General Family Medicine 04/19/21 11/11/24 Dennise Lopez NP [address] [place] [address] [address] [place] [address] PCP - General Family Medicine 11/12/24 Prerna Gonzales NP Family Medicine 04/29/18 09/11/23 Sherrie Ellington MA [address] [place] [address] [address] [place] [address] [facility] Receptionist 11/27/22 11/30/22 Mary Fabian MD [address] [facility] [address] [place] [address] Obstetrics and Gynecology 09/12/23 documented as of this encounter
== END 2025-08-13 11:10 | disposition home or self-care (01) ==
PROVIDERS: Emergency Provider Nurse Practitioner
DX: R30.0 Dysuria (principal); F17.210 Nicotine dependence, cigarettes, uncomplicated
CPT/HCPCS: 87086; 87186; 99213; G0463